=== PATIENT | male | born 1935 | race Caucasian/White ===

== ENCOUNTER → 2018-09-07 07:04 | Day surgery (SDC) | payer MEDICARE ==
--- NOTE | 2018-08-26 10:11 | HP ---
CC: Dr. Rodger Maza, [facility] in [place]; Dr. Naik* HISTORY AND PHYSICAL: DATE OF ADMISSION: 09/07/18 ADMITTING DIAGNOSES: 1. Severe phimosis. 2. Meatal stricture. 3. Urinary retention. PLANNED PROCEDURE: Dorsal slit, possible circumcision, possible meatotomy. SURGEON: Dr. Naik. 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 He had undergone urethral dilation and placement of a Juares catheter and is now being brought in for more definitive management of the situation. PAST MEDICAL HISTORY: 1. Significant for chronic kidney disease stage 2. 2. Type 2 diabetes mellitus. 3. Hyperlipidemia. 4. Hypothyroidism. 5. History of coronary artery disease. 6. Hypertension. 7. History of left renal mass (on surveillance through [facility] [[email or web address] Urology). MEDICATIONS ON ADMISSION: 1. Clonidine 0.2 mg 3 times a day. 2. Fenofibrate 200 mg daily. 3. Amlodipine 5 mg daily. 4. Labetalol 200 mg 3 times a day. 5. Flomax 0.4 mg daily. 6. Levemir 10 units b.i.d. 7. Losartan potassium 60 mg twice daily. 8. Levothyroxine 112 mcg daily. 9. Montelukast 10 mg daily. 10. Spironolactone 25 mg daily. Also, Dr. Maza has recently added Veltassa 1 tablet daily. ALLERGIES AND INTOLERANCES: ASPIRIN, HYDRALAZINE, LIPITOR. FAMILY HISTORY: Negative for bladder or prostate cancer. SOCIAL HISTORY: He is a former smoke, who smoked for 20 years and quit about 8 to 10 years ago. REVIEW OF SYSTEMS: He denies any chest pain or shortness of breath. PHYSICAL EXAMINATION GENERAL: Reveals a pleasant elderly gentleman. VITAL SIGNS: Blood pressure is 150/92, pulse 110 per minute and regular, temperature 97.7, oxygen saturation 94% on room air. LUNGS: Clear bilaterally. CARDIOVASCULAR: Regular rate and rhythm. S1, S2. ABDOMEN: Soft without masses. Phallus is uncircumcised with severe phimosis and a Juares catheter in place. PLAN: Plan is dorsal slit, possible circumcision, possible meatotomy. [id number]/[facility] #: [id number] [facility]OSPITALBailee
[~2018-09-07 07:04] MED LIST: Bacitracin OINTMENT* 0.5% 0.5 oz TUBE ONE; Buffered Lidocaine 1% SYRIN* 1 ML/SYRINGE INTRADERM ONE; Etomidate* 2 MG/ML 10 ML VIAL ONE; Famotidine IV* 10 MG/ML 2 ML (20 mg) IV ONE; Famotidine IV* 10 MG/ML 2 ML (20 mg) ONE; Lactated Ringers 1000 ML Bag* 1,000 ML IV SCH; Lidocaine 1% INJ* 10 MG/ML 30 ML SDV ONE; Lidocaine 2% JELLY* 6 ML JELLY TOPICAL ONE; Metoclopramide IV* 5 MG/ML 2 ML VIAL IV SLOW PU ONE; Metoclopramide IV* 5 MG/ML 2 ML VIAL ONE; Naloxone* 0.4 MG/ML 1 ML VIAL IV PRN; Ondansetron INJ* 2 MG/ML VIAL ONE; cefTRIAXone(*) 2 GM ADDV.VIAL IVPB ONE; fentaNYL* 50 MCG/ML 2 ML VIAL (100 MCG VIAL) IV PRN
[2018-09-07 12:23] VITALS: BP 179/95
--- NOTE | 2018-09-07 16:15 | OP ---
CC: Dr. Aldana * DATE OF OPERATION: 09/07/18 - [facility] DATE OF : 37 SURGEON: Alexey Naik MD ANESTHESIOLOGIST: Dr. Fuentes. ANESTHESIA: General. PRE-OP DIAGNOSES: 1. Severe phimosis. 2. Extensive adhesions between foreskin and glans penis. 3. Meatal stenosis. POST-OP DIAGNOSES: 1. Severe phimosis. 2. Extensive adhesions between foreskin and glans penis. 3. Meatal stenosis. OPERATIVE PROCEDURE: 1. Dorsal slit circumcision. 2. Division of adhesions between foreskin and glans. 3. Meatotomy (ventral meatotomy). COMPLICATIONS: None. ESTIMATED BLOOD LOSS: Minimal. OPERATIVE FINDINGS: As described above, extensive adhesions between foreskin and glans all around, severe phimosis and severe meatal stenosis. POSTOPERATIVE CONDITION: Stable. INDICATIONS: Kevin Hill is an 82-year-old gentleman who had been evaluated for urinary retention and had been noted to have the above mentioned findings. He also had prostate enlargement and I am not sure how much of the part that is playing in his urinary retention. The plan is to fix the problem related to the foreskin and the meatal stenosis and then give him a voiding trial and see if he is able to empty his bladder. If not, he would then require transurethral resection of the prostate in the future. DESCRIPTION OF PROCEDURE: After induction of general anesthesia, the patient was placed on the operating table in supine position. External genitalia were prepped and draped in the usual sterile fashion. The previously placed Juares catheter had been removed. Attention was directed first to the foreskin, which was severely adherent to the glans penis in addition to the phimosis. The adhesions between the foreskin and the glans were sharply divided all around and in some of these places, this resulted in some abrasion of the glans, which was controlled using interrupted [id number] 4-0 Vicryl sutures. Once the adhesions had been divided, I was able to retract the foreskin and an extensive dorsal slit was performed to expose the meatus. An additional ventral slit was also performed and the divided edges were oversewn using interrupted sutures of 3-0 chromic for hemostasis. Some of the redundant foreskin was approximated to the glans in areas where this was appropriate, both for cosmetic purposes and for hemostasis. Once this was done, attention was directed to the meatus. A ventral meatotomy was performed and mucosa was approximated to the divided edges using interrupted sutures of 4-0 chromic. A 24-Nauruan Juares catheter was easily introduced after the meatotomy and connected to a drainage bag. My plan is to give him a voiding trial in about 4 to 5 weeks and if he is not able to urinate, then the next step would be to bring him back for a transurethral resection of prostate. The patient tolerated the procedure satisfactorily and was transferred back to the recovery area in stable condition. [id number]/[facility] #: [id number] MTDBailee
== END | disposition home or self-care (01) ==
LOC: OR 07:04
PROVIDERS: ATTEND Urology
DX: N47.1 Phimosis (principal); N35.811 Other urethral stricture, male, meatal; N18.2 Chronic kidney disease, stage 2 (mild); I12.9 Hypertensive chronic kidney disease with stage 1 through stage 4 chronic kidney disease, or unspecified chronic kidney disease; E11.22 Type 2 diabetes mellitus with diabetic chronic kidney disease; E03.9 Hypothyroidism, unspecified; E78.5 Hyperlipidemia, unspecified
CPT/HCPCS: A9270-GY; J0696; J2405; J2765

== ENCOUNTER 2018-10-11 02:01 | Inpatient (IN) | payer MEDICARE ==
[2018-10-11] MEDS ORDERED: Furosemide IV* 10 MG/ML VIAL (40 MG) IV SLOW PU ONE (02:10)
[2018-10-11] MEDS ORDERED: Nitro 2% OINT* (Nitroglycerin) 1 INCH/PAK PAK TOPICAL ONE (02:11)
[2018-10-11] MEDS ORDERED: Albuterol/Ipratropium NEB.SOL* Albuterol 2.5 MG/Ipratropium 0.5 MG 3 ML INH ONE (02:51)
[2018-10-11] MEDS ORDERED: Albuterol 2.5 MG/3 ML NEB.SOL* (0.083%) INH ONE (02:53)
--- NOTE | 2018-10-11 03:01 | ED ---
Shortness of Breath - HPI Summary HPI Summary: This patient is a 83 year old M [facility] accompanied by his daughter- in-law with a chief complaint of increased SOB since 2 hours ago. Patient states that he was SOB all day. He takes medication to urinate and has a catheter in place. The patient rates the pain 0/10 in severity. Symptoms aggravated by nothing. Symptoms alleviated by nothing. - History of Current Complaint Chief Complaint: EDRespiratoryDistress Time Seen by Provider: 10/11/18 02:03 Hx Obtained From: Patient, Family/Swimming Pool Maintenance - [id number] Onset/Duration: Sudden Onset, Lasting Days - 1 Timing: Constant Aggravating Factors: Nothing Alleviating Factors: Nothing - Allergy/Home Medications Allergies/Adverse Reactions: Allergies Allergy/AdvReac Type Severity Reaction Status Date / Time aspirin Allergy Headache Verified 09/07/18 08:32 atorvastatin [From Lipitor] Allergy Unknown Verified 09/07/18 08:33 Reaction Details hydrolase Allergy Unknown Uncoded 09/07/18 08:33 Reaction Details PMH/Surg Hx/FS Hx/Imm Hx Previously Healthy: No Endocrine/Hematology History: Reports: Hx Diabetes - FINGER STICK BID, Hx Thyroid Disease Cardiovascular History: Reports: Hx Aneurysm, Hx Coronary Artery Disease, Hx Hypercholesterolemia, Hx Hypertension - CONTROLLED WITH DAILY MEDS, Other Cardiovascular Problems/Disorders - BYPASS GUTHERIE , AAA REPAIR Denies: Hx Pacemaker/ICD Respiratory History: Reports: Hx Pulmonary Embolism, Other Respiratory Problems/ Disorders - 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 SALIVARY GLAND REMOVED [id number];. CORONARY BY-PASS SURGERY [id number];. BILATERAL EYE CATARACT [facility];. AAA 2014 AORTIC STENT PLACEMENT [place] 10/13/13 ( CLEARED BY REPORT AND DR. HWANG. URBINA TO SCAN. SEE OTHER FAC REPORT); Hx Anesthesia Reactions: No Infectious Disease History: No Infectious Disease History: Denies: Traveled Outside the [place] in Last 30 Days - Family History Known Family History: Positive: Cardiac Disease, Diabetes - Social History Alcohol Use: None Hx Substance Use: No Substance Use Type: Reports: None Smoking Status (MU): Former Smoker Have You Smoked in the Last Year: No Review of Systems Negative: Fever Positive: Shortness Of Breath All Other Systems Reviewed And Are Negative: Yes Physical Exam - Summary Physical Exam Summary: VITAL SIGNS: Reviewed. GENERAL: Patient is a well-developed and nourished (MALE OR FEMALE) who is lying comfortable in the stretcher. Patient is not in any acute respiratory distress. HEAD AND FACE: No signs of trauma. No ecchymosis, hematomas or skull depressions. No sinus tenderness. EYES: PERRLA, EOMI x 2, No injected conjunctiva, no nystagmus. EARS: Hearing grossly intact. Ear canals and tympanic membranes are within normal limits. MOUTH: Oropharynx within normal limits. NECK: Bilateral JVD 6 cm, supple, trachea is midline, no adenopathy, no carotid bruit, no c-spine tenderness, neck with full ROM CHEST: Symmetric, no tenderness at palpation LUNGS: mild to moderate respiratory distress, bilateral rales diffuse CVS: Tachycardia, S1 and S2 present, no murmurs or gallops appreciated. ABDOMEN: distended, soft, non-tender. No rebound no guarding, and no masses palpated. Bowel sounds are normal. EXTREMITIES: Bilateral +2-3 pitting edema, FROM in all major joints, no cyanosis or clubbing. NEURO: Alert and oriented x 3. No acute neurological deficits. Speech is normal and follows commands. SKIN: Mildly diaphoretic and warm Triage Information Reviewed: Yes Vital Signs On Initial Exam: Initial Vitals Temp Pulse Resp BP Pulse Ox 97.3 F 93 28 175/113 100 10/11/18 02:01 10/11/18 02:01 10/11/18 02:01 10/11/18 02:01 10/11/18 02:01 Vital Signs Reviewed: Yes Diagnostics - Vital Signs Vital Signs Temp Pulse Resp BP Pulse Ox 10/11/18 02:30 91 25 161/93 100 10/11/18 02:21 77 28 100 10/11/18 02:07 92 19 100 10/11/18 02:03 93 19 175/113 100 10/11/18 02:01 97.3 F 93 28 175/113 100 - Laboratory Lab Results: Lab Results 10/11/18 Range/Units 02:27 ABG pH 7.29 L (7.35-7.45) ABG pCO2 51 H (35-45) mmHg ABG pO2 127 H (80-100) mmHg ABG HCO3 22.8 (19-31) mmol/L ABG O2 Saturation 98.5 H (94.0-98.0) % ABG Base Excess -2.7 L (-2.0-2.0) mmol/L Result Diagrams: 10/11/18 02:40 10/11/18 02:40 Lab Statement: Any lab studies that have been ordered have been reviewed, and results considered in the medical decision making process. - Radiology CXR Radiology Interpretation Completed By: ED Physician Summary of Radiographic Findings: cardiomegaly and bilaterlly interstitial infiltrate, consistent with CHF. - EKG 0230 Cardiac Rate: NL - 91 BPM EKG Rhythm: Sinus Rhythm Summary of EKG Findings: Sinus rhythm, 91 BPM, LBBB Course/Dx - Course Course Of Treatment: This patient is a 83 year old M presenting to [facility] accompanied by his [id number] with a chief complaint of increased SOB since 2 hours ago. Patient states that he was SOB all day. He takes medication to urinate and has a catheter in place. The patient rates the pain 0/10 in severity. Symptoms aggravated by nothing. Symptoms alleviated by nothing. Physical exam findings show mild to moderate respiratory distress, pt is mildly diaphoretic, bilateral JVD 6 cm, lung bilateral rales diffuse, tachycardiac, bilateral +2-3 pitting edema lower extremity, ABD distended. Lab results show RBC 3.45, Hgb 9.9, Hct 30, RDW 16, absolute neuts 7.8, absolute lymphs 0.5, INR 1.33, APTT 52.5, ABG pH 7.29, ABG pCO2 51, ABG pO2 127, ABG O2 saturation 98.5, ABG base excess -2.7, BUN 36, creatinine 2.96, glucose 171, calcium 8.4, BNP 619 , total protein 6.0, albumin 3.1, TSH 6.58. EKG at 0230 shows sinus rhythm, 91 BPM, LBBB. CXR shows cardiomegaly and bilaterlly interstitial infiltrate, consistent with CHF. During the ED course, the patient was given Ventolin, Duoneb, Lasix IV, and NTG. At 0346, Dr. Simpson discusses patient's case with Dr. Becker, hospitalist, who agrees to admit patient. Patient is agreeable. Final diagnosis is CHF. - Diagnoses Provider Diagnoses: CHF (congestive heart failure) - Physician Notifications Discussed Care of Patient With: Christina Becker Time Discussed With Above Provider: 03:46 Instructed by Provider To: Other - Dr. Simpson discusses patient's case with Dr. Becker, hospitalist, who agrees to admit patient. Discharge - Sign-Out/Discharge Documenting (check all that apply): Patient Departure - admit Patient Received Moderate/Deep Sedation with Procedure: No - Discharge Plan Condition: Good Disposition: ADMITTED TO [facility] - Attestation Statements Document Initiated by Scribe: Yes Documenting Scribe: Rohan Gutierrez Provider For Whom Scribe is Documenting (Include Credential): Dr. Maegan Simpson MD Scribe Attestation: Rohan Phillips, scribed for Dr. Maegan Simpson MD on 10/11/18 at 0525. Status of Scribe Document: Ready
[2018-10-11 03:06] LABS: ABS Eosinophils 0.3 10^3/ul (0-0.6); ABS Lymphocytes 0.5 10^3/ul (1.0-4.8); ABS Monocytes 0.5 10^3/ul (0-0.8); ABS Neutrophils 7.8 10^3/ul (1.5-7.7); Eosinophil % 3.4 %; Hematocrit 30 % (42-52); Hemoglobin 9.9 g/dL (14.0-18.0); Lymphocyte % 5.5 %; Mean Corpuscular HGB Conc 33 g/dL (31-36); Mean Corpuscular Hemoglobin 29 pg (27-31); Mean Corpuscular Volume 87 fL (80-94); Mean Platelet Volume 7.4 fL (7.4-10.4); Platelet Count 261 10^3/uL (150-450); Red Blood Count 3.45 10^6 /uL (4.18-5.48); Red Cell Distribution Width 16 % (10-15); White Blood Count 9.2 10^3/uL (3.5-10.8)
[2018-10-11 03:11] LABS: Activated Partial Thrombo Time 52.5 seconds (26.0-38.0); INR 1.33 (0.82-1.09)
[2018-10-11 03:15] LABS: Albumin 3.1 g/dL (3.2-5.2); Albumin/Globulin Ratio 1.1 (1-3); BUN/Creatinine Ratio 12.2 (8-20); Calcium 8.4 mg/dL (8.6-10.3); EGFR African American 24.7 (>60); EGFR Non-African American 20.4 (>60); Globulin 2.9 g/dL (2-4); Potassium 4.5 mmol/L (3.5-5.0); Total Bilirubin 0.7 mg/dL (0.2-1.0)
[2018-10-11 03:17] LABS: Troponin I 0.01 ng/mL (<0.04)
[2018-10-11 04:13] LABS: Magnesium 1.9 mg/dL (1.9-2.7)
[2018-10-11] MEDS ORDERED: Magnesium Sulfate 1 GM IV* 1 GM/100 ML BAG IV ONE (04:25)
[2018-10-11 04:28] LABS: TSH (Thyroid Stimulating Horm) 6.58 mcIU/mL (0.34-5.60)
[2018-10-11] MEDS ORDERED: Acetaminophen TAB* 325 MG PO PRN (04:41)
[2018-10-11] MEDS ORDERED: Dextrose 50% Syringe 50 ML* 25 GM/50 ML SYRINGE IV PUSH PRN (04:51)
[2018-10-11] MEDS: Levothyroxine TAB* 112 MCG TAB PO SCH (07:00)
[2018-10-11 07:08] LABS: Anion Gap 7 mmol/L (2-11); BUN/Creatinine Ratio 12.3 (8-20); Blood Urea Nitrogen 37 mg/dL (6-24); CO2 Carbon Dioxide 27 mmol/L (22-32); Calcium 8.5 mg/dL (8.6-10.3); Chloride 106 mmol/L (101-111); EGFR African American 24.2 (>60); Glucose 146 mg/dL (70-100); Magnesium 2.3 mg/dL (1.9-2.7); Potassium 4.8 mmol/L (3.5-5.0); Sodium 140 mmol/L (135-145)
[2018-10-11 07:13] LABS: % Iron Saturation 9 % (15-55); Iron 29 ug/dL (50-212); Total Iron Binding Capacity 312 mcg/dL (250-450); Transferrin 223 mg/dL (203-362)
[2018-10-11 07:25] LABS: Ferritin 134.1 ng/mL (24-336)
[2018-10-11] MEDS: Timolol 0.5% OPTH.SOL* BTL RIGHT EYE SCH ×2 (08:32→21:42)
[2018-10-11] MEDS: Losartan TAB* 25 MG PO SCH ×2 (08:32→21:40)
[2018-10-11] MEDS: Spironolactone TAB* 25 MG PO SCH (08:32)
[2018-10-11] MEDS: cloNIDine TAB* 0.1 MG PO SCH ×3 (08:32→21:41)
[2018-10-11] MEDS: Labetalol TAB* 300 MG PO SCH ×3 (08:32→21:41)
[2018-10-11] MEDS: Brinzolamide 1% OPHTH SOL(NF) BTL RIGHT EYE SCH ×2 (08:33→21:25)
[2018-10-11] MEDS: Insulin GLARGINE(*) 1 UNITS UNIT SUBCUT SCH ×2 (08:33→21:45)
[2018-10-11] MEDS: Insulin LISPRO* 1 UNITS UNIT SUBCUT SCH ×3 (08:33→17:56)
--- NOTE | 2018-10-11 10:11 | HP ---
CC: Adrian Aldana MD; Dr. Hubbard * HISTORY AND PHYSICAL: DATE OF ADMISSION: PRIMARY CARE PHYSICIAN: Adrian Aldana MD FIELD TECH: Dr. Hubbard. HEALTHCARE PROXY: His [id number], Lakeisha. CHIEF COMPLAINT: Acute onset of shortness of breath. HISTORY OF PRESENT ILLNESS: Mr. Hill is an 83-year-old man with history of coronary artery disease, status post CABG; heart failure, reduced ejection fraction, EF 45%; DM 2, on insulin; chronic kidney disease; hypertension; abdominal aortic aneurysm, status post repair; and hypothyroidism who presented with acute onset of shortness of breath. At baseline, he has shortness of breath which limits his exercise tolerance to approximately 1 minute; however, over the last 1 to 2 days, his exercise tolerance has been limited to few steps. His shortness of breath is worse when he is lying flat and he has been experiencing paroxysmal nocturnal dyspnea the last couple nights. He generally sleeps on 1 pillow and has not changed that recently. He has noticed worsening lower extremity edema which is a chronic problem, but now the edema is up to his thighs. He does deny new fevers, chills, chest pain, abdominal pain, nausea , vomiting, constipation, diarrhea, or dysuria. He does report a chronic cough productive of clear phlegm, which is a chronic problem that he has experienced last 30 years and has not recently worsened. A complete 10-point review of systems was performed and pertinent positives and negatives are listed in the HPI. In the emergency room, the patient was found to be in acute respiratory distress and significantly volume overloaded on exam. He was given nebulizers, Lasix 40 mg IV, and nitro paste, and placed on BiPAP machine. The patient has put out significant clear yellow urine and reports feeling significantly better by time of my exam and was able to come off BiPAP and be placed on 3 L nasal cannula oxygen with saturation 100%. He will be admitted to the medical floors for further IV diuresis and monitoring of respiratory status on supplemental oxygen. PAST MEDICAL HISTORY: 1. Coronary artery disease, status post CABG in 2006 with cardiac cath done in 2010 with severe moapa multivessel disease and LAD totally occluded at the ostium with 90% severe left circ disease. 2. Heart failure, reduced ejection fraction, EF 40% to 45%. 3. Hypertension. Of note, the patient was on hydrochlorothiazide in the recent past which seemed to have been discontinue due to hypokalemia. This year , he was started on spironolactone which has been complicated by elevated potassium, and now, he has been placed on Lokelma. It is unclear why he is not on furosemide for his heart failure with chronic lower extremity edema and history of elevated potassium on spironolactone. 4. Chronic kidney disease. 5. Diabetes mellitus type 2, on insulin. 6. Abdominal aortic aneurysm, status post repair. 7. Severe phimosis complicated by urinary retention with hospitalization on 03/16 for a dorsal slit with possible circumcision, placed on Juares catheter. 8. BPH. 9. Hypothyroidism. 10. Allergic rhinitis. HOME MEDICATIONS: 1. Amlodipine 5 mg daily. 2. Clonidine 0.2 mg 3 times a day. 3. Labetalol 300 mg 3 times a day. 4. Losartan 50 mg twice a day. 5. Spironolactone 25 mg daily. 6. Lokelma 10 g daily. 7. Tamsulosin 0.4 mg daily. 8. Fenofibrate 200 mg daily. 9. Insulin detemir 10 units twice a day. 10. Levothyroxine 112 mcg daily. 11. Montelukast 10 mg daily. 12. Vitamin D3 2000 International Units daily. 13. Azopt, latanoprost, and Timoptic eye drops. ALLERGIES: ASPIRIN caused dizziness and stomach upset, HYDRALAZINE caused drug - induced lupus, and ATORVASTATIN caused muscle aches. FAMILY HISTORY: Multiple uncles and his son suffer from alcoholism. He does not know the health history on his father's side as he does not know his father. 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 His son, Marcial, lives with him and is struggling with alcohol use disorder. The patient smoked 1 pack per day from age 16 to age 36. He denies ever using alcohol or other drugs. His healthcare proxy is his [id number] , Lakeisha. PHYSICAL EXAMINATION GENERAL: He is a well-appearing elderly man, in no acute distress, who is alert , interactive, and very humorous. VITAL SIGNS: Afebrile, heart rate 70, blood pressure 165/98, respiratory rate is 20, oxygen saturation 100% on 3 L. HEENT: With moist mucous membranes. Pupils equal, round, and reactive to light. NECK: Without JVD. Supple. LUNGS: With bibasilar crackles. HEART: With regular rate and rhythm. No murmurs, gallops, or rubs, although sounds are distant. ABDOMEN: Soft, nontender, mildly distended. The patient reports at baseline no rebound or guarding. No hepatic pulsation. EXTREMITIES: With bilateral edema up to mid thighs, 3+ around ankles, 1+ on thighs, warm and well perfused. No cyanosis, clubbing. NEUROLOGIC: Alert and oriented x3 without focal deficits. Speech is fluent. SKIN: Warm and dry. DIAGNOSTIC STUDIES/LAB DATA: Hemoglobin 9.9 with MCV 87, unknown baseline. INR 1.33. BUN/creatinine 36/2.96 which appears to be the patient's baseline renal function. BNP 619. TSH 6.58. ABG initially with pH 7.29 and pCO2 of 51, which improved to normal levels after BiPAP. Chest x-ray with cardiomegaly and bilateral interstitial infiltrates without focal consolidation or large effusions. EKG with normal sinus rhythm, with rate 91, with no ischemic changes. ASSESSMENT AND PLAN: is an 83-year-old man with heart failure, reduced ejection fraction, 40% to 45%; coronary artery disease, status post coronary artery bypass grafting; hypertension; chronic kidney disease; diabetes , on insulin; BPH; urinary retention with Juares catheter who is presenting with acute onset of shortness of breath associated with paroxysmal nocturnal dyspnea and worsening lower extremity edema. 1. Chronic heart failure, reduced ejection fraction presenting with acute exacerbation. The patient improved rapidly with furosemide 40 mg IV, BiPAP, and nitro paste. We will recheck morning electrolytes, replete as needed and consider second dose of furosemide 40 mg IV. He will be admitted to the telemetry unit and have daily weight with Is and Os recorded. We will wean oxygen as tolerated. Continue the patient's home losartan 50 mg twice a day. It is preferable that he have beta-blockade with a medication like carvedilol and we will consider switching his labetalol to carvedilol for his heart failure with reduced ejection fraction, which would also help with continued blood pressure control. Likely, this patient would benefit from addition of furosemide to his home medication regimen. He is currently only taking spironolactone, which I think may be for hypertension. Will order transthoracic echocardiogram for the morning. 2. Hypertension. Continue the patient's home amlodipine 5 mg daily, clonidine 0.2 mg 3 times a day, labetalol 300 mg 3 times a day, losartan 50 mg twice a day , spironolactone 25 mg daily. We will consider switching labetalol to carvedilol given improved outcomes in heart failure, reduced ejection fraction. Up-titration of carvedilol may allow the patient to come off his 3-time a day clonidine dosing as well, which would be favorable due to reduction of pharmacy. 3. Coronary artery disease, status post coronary artery bypass grafting. The patient has allergy to ASPIRIN and has been unable to tolerate statins in the past. We will defer further management to outpatient cardiology. 4. Diabetes. Continue the patient's home insulin detemir 10 units twice a day and we will add insulin sliding scale with 3-times a day fingersticks. 5. Hypothyroidism. TSH is 6.58 which is goal for this octogenarian. We will continue levothyroxine 112 mcg daily. 6. Allergic rhinitis. We will continue home montelukast 10 mg daily. 7. BPH. Continue tamsulosin 0.4 mg daily. The patient does have chronic Juares after a recent admission for severe phimosis. We will continue Juares. 8. Anemia with low normal MCV, with unknown baseline. We will order iron studies for the morning. 9. DVT prophylaxis. Initiate Lovenox at reduced dose given impaired kidney function. 10. FEN. We will initiate carb controlled diet. TIME SPENT: Approximately 60 minutes was spent on admission of this patient, more than of half of which was spent at the bedside for interview and exam. [id number]/[facility] #: [id number] [facility]ITAL[facility]ilee
[2018-10-11] MEDS ORDERED: Furosemide IV* 10 MG/ML VIAL (40 MG) IV ONE (12:00)
--- NOTE | 2018-10-11 12:52 | ECHO ---
*[facility]* [place] [address] Fax #: [phone] Transthoracic Echocardiogram Patient: Kevin Gregory : 1935 Study Date: 10/11/2018 Age: 83 Gender: M HR: 81 bpm Height: 70 in /177.8 cm BSA: 2.05 m^2 Weight: 184.6 lb /83.9 kg BMI: 26.5 kg/m^2 *Rehabilitation Assistant: * Dayana Rogers [facility] *Referring Physician: * Christina Becker *Reading Physician: * Kiara Barnes MD Indications: Congestive Heart Failure. History: Coronary artery disease. Risk factors: Hypertension. Diabetes mellitus. Dyslipidemia. Labs, prior tests, procedures, and surgery: Coronary artery bypass grafting. Conclusions Summary: 1. Left ventricle: The cavity size is normal. Wall thickness is mildly to moderately increased. Systolic function is normal. The estimated ejection fraction is 55-60%. Evidence of increased LVEDP based on E/e'. 2. Right ventricle: Systolic function is normal. 3. Mitral valve: There is moderate regurgitation. 4. Aortic valve: There is mild regurgitation. 5. Tricuspid valve: There is mild regurgitation. 6. Normal pulmonary artery pressure. 7. Compared with prior echocardiogram of 05/12/18, ejection fraction has improved from 40-45%, no longer see focal wall motion abnormality in the inf/posterior wall. AI is stable, mitral regurgitation has increased from mild, tricuspid regurgitation is stable. Study data: Transthoracic echocardiogram. Procedure: Transthoracic echocardiography was performed. Image quality was good. Complete 2D, spectral Doppler, and color flow Doppler. Patient status: Inpatient. Patient room number: 447-2. Rhythm: Normal sinus rhythm. Findings Left ventricle: The cavity size is normal. Wall thickness is mildly to moderately increased. Systolic function is normal. The estimated ejection fraction is 55-60%. Wall motion is normal; there are no regional wall motion abnormalities. Left ventricular diastolic function parameters are indeterminate. Evidence of increased LVEDP based on E/e'. Right ventricle: Well visualized. The cavity size is normal. Wall thickness is normal. Systolic function is normal. Systolic pressure is within the normal range. Ventricular septum: Well visualized. Left atrium: Well visualized. The atrium is normal in size. Right atrium: Well visualized. The atrium is normal in size. Atrial septum: Well visualized. Mitral valve: Well visualized. The leaflets are mildly thickened. No echocardiographic evidence for prolapse. There is no evidence of stenosis. There is moderate regurgitation. Aortic valve: Well visualized. The valve is trileaflet. The leaflets are normal thickness. There is no evidence of stenosis. There is mild regurgitation. Tricuspid valve: Well visualized. The leaflets are normal thickness. There is no evidence of stenosis. There is mild regurgitation. Pulmonic valve: Well visualized. The leaflets are normal thickness. There is no evidence of stenosis. There is no significant regurgitation. Aorta: The aorta is well visualized and normal size. Aortic arch: The aortic arch is appears normal. Pericardium: There is no pericardial effusion. No evidence of pleural fluid accumulation. Pulmonary arteries: Well visualized. The main pulmonary artery is normal-sized. Systemic veins: Not well visualized. Pulmonary veins: Visualization of the pulmonary venous anatomy is incomplete, but a significant abnormality is unlikely. Measurements Left ventricle Value Ref Aortic valve continued Value Ref MARY BETH, LAX 5.5 cm 4.2 - Mean grad, S 5.5 mm Hg ----- 5.8 Peak grad, S 9.2 mm Hg ----- ESD, LAX 3.8 cm 2.5 - LVOT/AV, VTI ratio 0.86 ----- 4.0 AR peak v 3.85 m/sec ----- FS, LAX 30 % 25 - 43 AR decel time 1099 ms ----- PW, ED, LAX (H) 1.4 cm 0.6 - AR PHT 319 ms ----- 1.0 AR peak grad 59 mm Hg ----- FS 30 % 25 - 43 PW, ED (H) 1.4 cm 0.6 - Mitral valve Value Ref 1.0 Peak E 1.24 m/sec ----- PW/ID, ED 0.26 -------- Peak A 0.89 m/sec ----- E', lat sera, TDI (L) 9.2 cm/sec >=10.0 Decel time 155 ms ----- E/e', lat sera, 14 -------- Peak grad, D 6.1 mm Hg --- -- TDI Peak E/A ratio 1.4 ----- MR peak v 6.04 m/sec ----- LVOT Value Ref Peak mehdi, S 1.22 m/sec -------- Pulmonic valve Value Ref VTI, S 28.5 cm -------- Peak v, S 0.75 m/sec ----- Peak grad, S 6 mm Hg -------- Peak grad, S 2.3 mm Hg ----- Mean grad, S 3 mm Hg -------- Tricuspid valve Value Ref Ventricular septum Value Ref TR peak v 2.53 m/sec <=2.8 IVS, ED (H) 1.2 cm 0.6 - Peak RV-RA grad, S 26 mm Hg ----- 1.0 Aortic root Value Ref Right ventricle Value Ref Root diam 2.0 cm <4.2 MARY BETH, LAX 2.8 cm -------- MARY BETH major ax, A4C (L) 3.3 cm 5.9 - Ascending aorta Value Ref 8.3 AAo AP diam, S 3.3 cm ----- AAo AP diam/bsa, S 1.6 cm/m^2 ----- Left atrium Value Ref LA ID 4.3 cm -------- Aortic arch Value Ref SI dim ES, LAX 4.3 cm -------- Arch diam 2.5 cm ----- ML dim, A4C 4.9 cm -------- SI dim, A4C 5.7 cm -------- Decending aorta Value Ref Vol, ES, 2-p 99 ml -------- Nehemias peak mehdi 0.58 m/sec ----- Vol/bsa, ES, 2-p (H) 48 ml/m^2 16 - 34 Inferior vena cava Value Ref Right atrium Value Ref Diam 2.5 cm ----- SI dim, ES (H) 6.0 cm 3.4 - 5.3 ML dim, ES, A4C (H) 4.8 cm 2.6 - 4.4 SI dim, ES, A4C (H) 6.0 cm 3.4 - 5.3 Aortic valve Value Ref Peak v, S 1.52 m/sec -------- VTI, S 33.2 cm -------- Legend: (L) and (H) kiara values outside specified reference range. Prepared and electronically signed by Kiara Barnes MD 10/11/2018 12:52
[2018-10-11] MEDS: Cholecalciferol TAB* 1000 UNITS PO SCH (12:58)
[2018-10-11] MEDS: Montelukast Sodium TAB* 10 MG PO SCH (12:58)
[2018-10-11] MEDS: Latanoprost 0.005%* 2.5 ml BTL BOTH EYES SCH (18:15)
--- NOTE | 2018-10-11 18:21 | PN ---
Progress Note - Progress Note Date of Service: 10/11/18 Note: Pt seen, examined and discussed management with Dr. Coe. Agree with assessment and plan as outlined in her note unless indicated here. S: Breathing much improved since admission. Abnormal Lab Results 10/11/18 10/11/18 10/11/18 02:27 02:40 02:40 WBC 9.2 RBC 3.45 L Hgb 9.9 L Hct 30 L MCV 87 MCH 29 MCHC 33 RDW 16 H Plt Count 261 MPV 7.4 Neut % (Auto) 85.0 Lymph % (Auto) 5.5 Valley % (Auto) 5.8 Eos % (Auto) 3.4 Baso % (Auto) 0.3 Absolute Neuts (auto) 7.8 H Absolute Lymphs (auto) 0.5 L Absolute Monos (auto) 0.5 Absolute Eos (auto) 0.3 Absolute Basos (auto) 0.0 Absolute Nucleated RBC 0.0 Nucleated RBC % 0.0 INR (Anticoag Therapy) 1.33 H APTT 52.5 H Patient Temperature ABG pH 7.29 L ABG pH (Temp Correct) ABG pCO2 51 H ABG pCO2 (Temp Corrct ABG pO2 127 H ABG pO2 (Temp Correct ABG HCO3 22.8 ABG O2 Saturation 98.5 H ABG Base Excess -2.7 L Respiration Rate O2 Delivery Device Ventilator Type Vent Mode FiO2 Inspiratory Time PEEP Pressure Support Pressure Control EPAP IPAP BiPAP Sodium Potassium Chloride Carbon Dioxide Anion Gap BUN Creatinine Est GFR ( Amer) Est GFR (Non-Af Amer) BUN/Creatinine Ratio Glucose POC Glucose (mg/dL) Calcium Magnesium Iron TIBC % Saturation Unsat Iron Binding Transferrin Ferritin Total Bilirubin AST ALT Alkaline Phosphatase Troponin I B-Natriuretic Peptide Total Protein Albumin Globulin Albumin/Globulin Ratio TSH 10/11/18 10/11/18 10/11/18 02:40 02:40 04:06 WBC RBC Hgb Hct MCV MCH MCHC RDW Plt Count MPV Neut % (Auto) Lymph % (Auto) Valley % (Auto) Eos % (Auto) Baso % (Auto) Absolute Neuts (auto) Absolute Lymphs (auto) Absolute Monos (auto) Absolute Eos (auto) Absolute Basos (auto) Absolute Nucleated RBC Nucleated RBC % INR (Anticoag Therapy) APTT Patient Temperature Not Reportable ABG pH 7.37 ABG pH (Temp Correct) Not Reportable ABG pCO2 40 ABG pCO2 (Temp Corrct Not Reportable ABG pO2 112 H ABG pO2 (Temp Correct Not Reportable ABG HCO3 23.4 ABG O2 Saturation 98.8 H ABG Base Excess -2.0 Respiration Rate 14 O2 Delivery Device Bipap Ventilator Type Not Reportable Vent Mode S/t FiO2 30 Inspiratory Time Not Reportable PEEP Not Reportable Pressure Support Not Reportable Pressure Control Not Reportable EPAP 6 IPAP 12 BiPAP Not Reportable Sodium 136 Potassium 4.5 Chloride 105 Carbon Dioxide 26 Anion Gap 5 BUN 36 H Creatinine 2.96 H Est GFR ( Amer) 24.7 Est GFR (Non-Af Amer) 20.4 BUN/Creatinine Ratio 12.2 Glucose 171 H POC Glucose (mg/dL) Calcium 8.4 L Magnesium 1.9 Iron TIBC % Saturation Unsat Iron Binding Transferrin Ferritin Total Bilirubin 0.70 AST 19 ALT 12 Alkaline Phosphatase 44 Troponin I 0.01 B-Natriuretic Peptide 619 H Total Protein 6.0 L Albumin 3.1 L Globulin 2.9 Albumin/Globulin Ratio 1.1 TSH 6.58 H 10/11/18 10/11/18 10/11/18 06:01 07:42 11:51 WBC RBC Hgb Hct MCV MCH MCHC RDW Plt Count MPV Neut % (Auto) Lymph % (Auto) Valley % (Auto) Eos % (Auto) Baso % (Auto) Absolute Neuts (auto) Absolute Lymphs (auto) Absolute Monos (auto) Absolute Eos (auto) Absolute Basos (auto) Absolute Nucleated RBC Nucleated RBC % INR (Anticoag Therapy) APTT Patient Temperature ABG pH ABG pH (Temp Correct) ABG pCO2 ABG pCO2 (Temp Corrct ABG pO2 ABG pO2 (Temp Correct ABG HCO3 ABG O2 Saturation ABG Base Excess Respiration Rate O2 Delivery Device Ventilator Type Vent Mode FiO2 Inspiratory Time PEEP Pressure Support Pressure Control EPAP IPAP BiPAP Sodium 140 Potassium 4.8 Chloride 106 Carbon Dioxide 27 Anion Gap 7 BUN 37 H Creatinine 3.02 H Est GFR ( Amer) 24.2 Est GFR (Non-Af Amer) 20.0 BUN/Creatinine Ratio 12.3 Glucose 146 H POC Glucose (mg/dL) 143 H 172 H Calcium 8.5 L Magnesium 2.3 Iron 29 L TIBC 312 % Saturation 9 L Unsat Iron Binding < 297 Transferrin 223 Ferritin 134.1 Total Bilirubin AST ALT Alkaline Phosphatase Troponin I B-Natriuretic Peptide Total Protein Albumin Globulin Albumin/Globulin Ratio TSH 10/11/18 16:22 WBC RBC Hgb Hct MCV MCH MCHC RDW Plt Count MPV Neut % (Auto) Lymph % (Auto) Valley % (Auto) Eos % (Auto) Baso % (Auto) Absolute Neuts (auto) Absolute Lymphs (auto) Absolute Monos (auto) Absolute Eos (auto) Absolute Basos (auto) Absolute Nucleated RBC Nucleated RBC % INR (Anticoag Therapy) APTT Patient Temperature ABG pH ABG pH (Temp Correct) ABG pCO2 ABG pCO2 (Temp Corrct ABG pO2 ABG pO2 (Temp Correct ABG HCO3 ABG O2 Saturation ABG Base Excess Respiration Rate O2 Delivery Device Ventilator Type Vent Mode FiO2 Inspiratory Time PEEP Pressure Support Pressure Control EPAP IPAP BiPAP Sodium Potassium Chloride Carbon Dioxide Anion Gap BUN Creatinine Est GFR ( Amer) Est GFR (Non-Af Amer) BUN/Creatinine Ratio Glucose POC Glucose (mg/dL) 151 H Calcium Magnesium Iron TIBC % Saturation Unsat Iron Binding Transferrin Ferritin Total Bilirubin AST ALT Alkaline Phosphatase Troponin I B-Natriuretic Peptide Total Protein Albumin Globulin Albumin/Globulin Ratio TSH Vital Signs - 12 hr Temp Pulse Resp BP Pulse Ox 10/11/18 11:09 98.1 F 74 16 148/72 98 10/11/18 08:00 16 10/11/18 07:51 97.8 F 81 16 161/83 100 O: lying 35 deg interactive, NAD lung cta b/l rrr 2/6 DONNY RUSB soft nt/nd 2+ le edema to knees b/l AOx3 Assessment 83 M h/o CAD, sCHF, HTN,. DM pw SOB c/w CHF exacerbation Acute systolic CHF exacerbation -c/w lasix -daily weights, strict I/Os -consider volume restriction if necessary -diurese slow given CKF -c/w ARB and consider transition of labetalol to carvedilol tomorrow CKD -will hinder rate we can safely diurese IDDM -lantus -lispro sliding scale Chronic saldana -noted and in place DVT ppx -reduced dose lovenox in setting of CKD
--- NOTE | 2018-10-11 18:30 | PN ---
Subjective Date of Service: 10/11/18 Interval History: Mr. Lott complains of SOB for 1 day with no aggravating and relieving factor. H states that SOB is improving after diuretics and BiPaP. Patient also complains of PND and swelling of legs. No c/o chest pain, fever. Objective Active Medications: Acetaminophen (Tylenol Tab*) 975 mg PO Q8H PRN PRN Reason: FEVER/PAIN Amlodipine Besylate (Norvasc Tab*) 5 mg PO BEDTIME [facility] Brinzolamide (Azopt 1% Ophth Whitney(Nf)) 1 drop RIGHT EYE BID [facility] Last Admin: 10/11/18 08:33 Dose: Not Given Cholecalciferol (Vitamin D Tab*) 2,000 units PO 1200 [facility] Last Admin: 10/11/18 12:58 Dose: 2,000 units Clonidine HCl (Catapres Tab*) 0.2 mg PO TID [facility] Last Admin: 10/11/18 12:58 Dose: 0.2 mg Dextrose (D50w Syringe 50 Ml*) 12.5 gm IV PUSH .FOR FS < 60 - SS PRN PRN Reason: FS < 60 Enoxaparin Sodium (Lovenox(*)) 30 mg SUBCUT Q24H [facility] Furosemide (Lasix Iv*) 40 mg IV DAILY [facility] Insulin Glargine (Lantus(*)) 8 units SUBCUT BID [facility] Last Admin: 10/11/18 08:33 Dose: 8 units Insulin Human Lispro (Humalog*) 0 units SUBCUT AC TERE; Protocol Last Admin: 10/11/18 17:56 Dose: 2 unit Labetalol HCl (Trandate Tab*) 300 mg PO TID [facility] Last Admin: 10/11/18 13:03 Dose: 300 mg Latanoprost (Xalatan 0.005%*) 1 drop BOTH EYES QPM [facility] Last Admin: 10/11/18 18:15 Dose: 1 drop Levothyroxine Sodium (Synthroid Tab*) 112 mcg PO 0600 [facility] Last Admin: 10/11/18 07:00 Dose: 112 mcg Losartan Potassium (Cozaar Tab*) 50 mg PO BID [facility] Last Admin: 10/11/18 08:32 Dose: 50 mg Montelukast Sodium (Singulair Tab*) 10 mg PO 1200 [facility] Last Admin: 10/11/18 12:58 Dose: 10 mg Spironolactone (Aldactone Tab*) 25 mg PO QAM [facility] Last Admin: 10/11/18 08:32 Dose: 25 mg Tamsulosin HCl (Flomax Cap*) 0.4 mg PO BEDTIME [facility] Timolol Maleate (Timoptic 0.5% Opth*) 2 drop RIGHT EYE BID [facility] Last Admin: 10/11/18 08:32 Dose: 2 drop Vital Signs - 8 hr 10/11/18 11:09 Temperature 98.1 F Pulse Rate 74 Respiratory 16 Rate Blood Pressure 148/72 (mmHg) O2 Sat by Pulse 98 Oximetry Oxygen Devices in Use Now: Nasal Cannula Exam: Patient is not in acute distress. B/L lower limb selling presnt till knees. Chest: B/L rales present. Heart' Normal heart sounds with no murmur or gallop. Result Diagrams: 10/11/18 02:40 10/11/18 06:01 Additional Lab and Data: Lab Results 10/11/18 Range/Units 02:27 ABG pH 7.29 L (7.35-7.45) ABG pCO2 51 H (35-45) mmHg ABG pO2 127 H (80-100) mmHg ABG HCO3 22.8 (19-31) mmol/L ABG O2 Saturation 98.5 H (94.0-98.0) % ABG Base Excess -2.7 L (-2.0-2.0) mmol/L Assess/Plan/Problems-Billing Assessment: 83 y/o M former smoker w/o PMH of CHF with reduced EF, CAD, status post coronary artery bypass grafting, HTN, Diabetes( taking insulin), CKD presented with SOB with acute exacerbation for 2 hr associated with PND and swelling of lower extremity but no chest pain. Admitted with diagnosis of CHF with acute exacerbation improved with furosemide, Bipap and Nitroglycerin paste. Patient has normal EF according to new echo. - Patient Problems (1) CHF (congestive heart failure) Current Visit: Yes Status: Acute Code(s): I50.9 - HEART FAILURE, UNSPECIFIED SNOMED Code(s): 72586089 Comment: CHF with with preserved EF(55-60%). Chest xray showed b/l interstitial infiltrates, BNP was high and ABG showed respiratory acidosis. Improved with medication. Transthoracic echo showed improvement in his EF(55-60% ) compared to his last echo. Monitor oxygen saturation, daily weight and input and output. BMP to be monitored. Medicine reconciliation needed. (2) CAD (coronary artery disease) of artery bypass graft Current Visit: Yes Status: Acute Code(s): I25.810 - ATHEROSCLEROSIS OF CABG W/O ANGINA PECTORIS SNOMED Code(s): 939679235 Comment: CABG done in 2009. May be contributing to his heart failure due to ischemic cardiomyopathy. Allergic to aspirin and atorvastanin. (3) Hypertension Current Visit: Yes Status: Acute Code(s): I10 - ESSENTIAL (PRIMARY) HYPERTENSION SNOMED Code(s): 51288680 Comment: During presentation BP was high in 160-170/100-110. Now it is in 140 -150/70-80 mm hg. Patient is on amlopdipine, clonidine, losartan, spironolactone, labetolol(home medication). received furosemide here. (4) Diabetes Current Visit: Yes Status: Acute Code(s): E11.9 - TYPE 2 DIABETES MELLITUS WITHOUT COMPLICATIONS SNOMED Code(s): 37478850 Comment: Patient is on insulin glargine 8U BID and insulin lispro added. Recent blood glucose is 151. Monitor blood glucose. (5) BPH (benign prostatic hyperplasia) Current Visit: Yes Status: Acute Code(s): N40.0 - BENIGN PROSTATIC HYPERPLASIA WITHOUT LOWER URINRY TRACT SYMP SNOMED Code(s): 693667028 Comment: Patient is on tamsulosin 0.4 mg daily. Have saldana catheter intact after severe phimosis. Inquire about saldana and if necessary may plan to remove. (6) Renal failure Current Visit: Yes Status: Acute Comment: Patient creatinine was 2.96 on presentation and latest creatinine is 3.02. His renal function is abnormal since 2014. Monitor BMP. Status and Disposition: Patient is admitted in medicine department.
[2018-10-11] MEDS ORDERED: FENOFIBRATE MICRONIZED 200 MG PO SCH (21:00)
[2018-10-11] MEDS: amLODIPine TAB* 5 MG PO SCH (21:40)
[2018-10-11] MEDS: Tamsulosin CAP* 0.4 MG PO SCH (21:41)
[2018-10-11] MEDS: Enoxaparin(*) 30 MG/0.3 ML SYR SUBCUT SCH (21:44)
[2018-10-12] MEDS: Furosemide IV* 10 MG/ML VIAL (40 MG) IV SCH (05:13)
[2018-10-12] MEDS: Levothyroxine TAB* 112 MCG TAB PO SCH (05:13)
[2018-10-12 08:22] LABS: BUN/Creatinine Ratio 12.8 (8-20); Calcium 8.7 mg/dL (8.6-10.3); EGFR African American 23.3 (>60); EGFR Non-African American 19.2 (>60); Potassium 4.3 mmol/L (3.5-5.0)
[2018-10-12] MEDS: Insulin LISPRO* 1 UNITS UNIT SUBCUT SCH ×3 (08:27→17:14)
[2018-10-12] MEDS: Losartan TAB* 25 MG PO SCH ×2 (09:32→21:10)
[2018-10-12] MEDS: Timolol 0.5% OPTH.SOL* BTL RIGHT EYE SCH ×2 (09:32→21:40)
[2018-10-12] MEDS: cloNIDine TAB* 0.1 MG PO SCH ×3 (09:33→21:11)
[2018-10-12] MEDS: Labetalol TAB* 300 MG PO SCH ×3 (09:33→21:11)
[2018-10-12] MEDS: Spironolactone TAB* 25 MG PO SCH (09:34)
[2018-10-12] MEDS: Insulin GLARGINE(*) 1 UNITS UNIT SUBCUT SCH ×2 (09:34→21:12)
[2018-10-12] MEDS: Brinzolamide 1% OPHTH SOL(NF) BTL RIGHT EYE SCH ×2 (09:35→21:07)
[2018-10-12] MEDS: Cholecalciferol TAB* 1000 UNITS PO SCH (12:57)
[2018-10-12] MEDS: Montelukast Sodium TAB* 10 MG PO SCH (12:57)
--- NOTE | 2018-10-12 16:57 | PN ---
<AtifLor correa - Last Filed: 10/12/18 16:51> Subjective Date of Service: 10/12/18 Interval History: Patient doesnot have any fresh complaint.He said he walked around without any discomfort or sob. His extremity swelling is reducing. Objective Active Medications: Acetaminophen (Tylenol Tab*) 975 mg PO Q8H PRN PRN Reason: FEVER/PAIN Amlodipine Besylate (Norvasc Tab*) 5 mg PO BEDTIME [facility] Last Admin: 10/11/18 21:40 Dose: 5 mg Brinzolamide (Azopt 1% Ophth Whitney(Nf)) 1 drop RIGHT EYE BID [facility] Last Admin: 10/12/18 09:35 Dose: Not Given Cholecalciferol (Vitamin D Tab*) 2,000 units PO 1200 [facility] Last Admin: 10/12/18 12:57 Dose: 2,000 units Clonidine HCl (Catapres Tab*) 0.2 mg PO TID [facility] Last Admin: 10/12/18 12:58 Dose: 0.2 mg Dextrose (D50w Syringe 50 Ml*) 12.5 gm IV PUSH .FOR FS < 60 - SS PRN PRN Reason: FS < 60 Enoxaparin Sodium (Lovenox(*)) 30 mg SUBCUT Q24H [facility] Last Admin: 10/11/18 21:44 Dose: 30 mg Furosemide (Lasix Iv*) 40 mg IV DAILY [facility] Last Admin: 10/12/18 05:13 Dose: 40 mg Insulin Glargine (Lantus(*)) 8 units SUBCUT BID [facility] Last Admin: 10/12/18 09:34 Dose: 8 units Insulin Human Lispro (Humalog*) 0 units SUBCUT AC [facility]; Protocol Last Admin: 10/12/18 12:58 Dose: 2 unit Labetalol HCl (Trandate Tab*) 300 mg PO TID [facility] Last Admin: 10/12/18 12:57 Dose: 300 mg Latanoprost (Xalatan 0.005%*) 1 drop BOTH EYES QPM [facility] Last Admin: 10/11/18 18:15 Dose: 1 drop Levothyroxine Sodium (Synthroid Tab*) 112 mcg PO 0600 [facility] Last Admin: 10/12/18 05:13 Dose: 112 mcg Losartan Potassium (Cozaar Tab*) 50 mg PO BID [facility] Last Admin: 10/12/18 09:32 Dose: 50 mg Montelukast Sodium (Singulair Tab*) 10 mg PO 1200 [facility] Last Admin: 10/12/18 12:57 Dose: 10 mg Spironolactone (Aldactone Tab*) 25 mg PO QAM [facility] Last Admin: 10/12/18 09:34 Dose: 25 mg Tamsulosin HCl (Flomax Cap*) 0.4 mg PO BEDTIME [facility] Last Admin: 10/11/18 21:41 Dose: 0.4 mg Timolol Maleate (Timoptic 0.5% Opth*) 2 drop RIGHT EYE BID [facility] Last Admin: 10/12/18 09:32 Dose: 2 drop Oxygen Devices in Use Now: Nasal Cannula Exam: Patient was siting on a bed comfortably. B/L Lower extremity swelling below knee. Chest: clear on ascultation. Result Diagrams: 10/11/18 02:40 10/12/18 07:40 Additional Lab and Data: Lab Results 10/11/18 Range/Units 02:27 ABG pH 7.29 L (7.35-7.45) ABG pCO2 51 H (35-45) mmHg ABG pO2 127 H (80-100) mmHg ABG HCO3 22.8 (19-31) mmol/L ABG O2 Saturation 98.5 H (94.0-98.0) % ABG Base Excess -2.7 L (-2.0-2.0) mmol/L Assess/Plan/Problems-Billing Assessment: 83 y/o M former smoker w/o PMH of CHF with reduced EF, CAD, status post coronary artery bypass grafting, HTN, Diabetes( taking insulin), CKD presented with SOB with acute exacerbation for 2 hr associated with PND and swelling of lower extremity but no chest pain. Admitted with diagnosis of CHF with acute exacerbation improved with furosemide, Bipap and Nitroglycerin paste. Patient is improving. - Patient Problems (1) CHF (congestive heart failure) Current Visit: Yes Status: Acute Code(s): I50.9 - HEART FAILURE, UNSPECIFIED SNOMED Code(s): 13309704 Comment: CHF with with preserved EF(55-60%). Chest xray showed b/l interstitial infiltrates, BNP was high and ABG showed respiratory acidosis. Improved with medication. Transthoracic echo showed improvement in his EF(55-60% ) compared to his last echo. His output was about 4500 ml so his diuretic was adjusted. Monitor oxygen saturation, daily weight and input and output. BMP to be monitored. (2) CAD (coronary artery disease) of artery bypass graft Current Visit: Yes Status: Acute Code(s): I25.810 - ATHEROSCLEROSIS OF CABG W/O ANGINA PECTORIS SNOMED Code(s): 798805708 Comment: CABG done in 2009. May be contributing to his heart failure due to ischemic cardiomyopathy. Allergic to aspirin and atorvastanin. (3) Hypertension Current Visit: Yes Status: Acute Code(s): I10 - ESSENTIAL (PRIMARY) HYPERTENSION SNOMED Code(s): 22397442 Comment: During presentation BP was high in 160-170/100-110. Now it is in 130 /70 mm hg. Patient is on amlopdipine, clonidine, losartan, spironolactone, labetolol(home medication). (4) Diabetes Current Visit: Yes Status: Acute Code(s): E11.9 - TYPE 2 DIABETES MELLITUS WITHOUT COMPLICATIONS SNOMED Code(s): 18769801 Comment: Patient is on insulin glargine 8U BID and insulin lispro added. Recent blood glucose is 167. Monitor blood glucose. (5) BPH (benign prostatic hyperplasia) Current Visit: Yes Status: Acute Code(s): N40.0 - BENIGN PROSTATIC HYPERPLASIA WITHOUT LOWER URINRY TRACT SYMP SNOMED Code(s): 543960603 Comment: Patient is on tamsulosin 0.4 mg daily. Have saldana catheter intact after severe phimosis. Inquire about saldana and if necessary may plan to remove. (6) Renal failure Current Visit: Yes Status: Acute Comment: Patient creatinine was 2.96 on presentation and latest creatinine is 3.12. His renal function is abnormal since 2014. Monitor BMP and input and output. Status and Disposition: Patient is admitted in medicine department. <Saran Messina - Last Filed: 10/12/18 18:53> Objective Active Medications: Acetaminophen (Tylenol Tab*) 975 mg PO Q8H PRN PRN Reason: FEVER/PAIN Amlodipine Besylate (Norvasc Tab*) 5 mg PO BEDTIME [facility] Last Admin: 10/11/18 21:40 Dose: 5 mg Brinzolamide (Azopt 1% Ophth Whitney(Nf)) 1 drop RIGHT EYE BID [facility] Last Admin: 10/12/18 09:35 Dose: Not Given Cholecalciferol (Vitamin D Tab*) 2,000 units PO 1200 [facility] Last Admin: 10/12/18 12:57 Dose: 2,000 units Clonidine HCl (Catapres Tab*) 0.2 mg PO TID [facility] Last Admin: 10/12/18 12:58 Dose: 0.2 mg Dextrose (D50w Syringe 50 Ml*) 12.5 gm IV PUSH .FOR FS < 60 - SS PRN PRN Reason: FS < 60 Enoxaparin Sodium (Lovenox(*)) 30 mg SUBCUT Q24H [facility] Last Admin: 10/11/18 21:44 Dose: 30 mg Furosemide (Lasix Iv*) 40 mg IV DAILY [facility] Last Admin: 10/12/18 05:13 Dose: 40 mg Insulin Glargine (Lantus(*)) 8 units SUBCUT BID [facility] Last Admin: 10/12/18 09:34 Dose: 8 units Insulin Human Lispro (Humalog*) 0 units SUBCUT AC [facility]; Protocol Last Admin: 10/12/18 17:14 Dose: 1 unit Labetalol HCl (Trandate Tab*) 300 mg PO TID [facility] Last Admin: 10/12/18 12:57 Dose: 300 mg Latanoprost (Xalatan 0.005%*) 1 drop BOTH EYES QPM [facility] Last Admin: 10/12/18 17:15 Dose: 1 drop Levothyroxine Sodium (Synthroid Tab*) 112 mcg PO 0600 [facility] Last Admin: 10/12/18 05:13 Dose: 112 mcg Losartan Potassium (Cozaar Tab*) 50 mg PO BID [facility] Last Admin: 10/12/18 09:32 Dose: 50 mg Montelukast Sodium (Singulair Tab*) 10 mg PO 1200 [facility] Last Admin: 10/12/18 12:57 Dose: 10 mg Spironolactone (Aldactone Tab*) 25 mg PO QAM [facility] Last Admin: 10/12/18 09:34 Dose: 25 mg Tamsulosin HCl (Flomax Cap*) 0.4 mg PO BEDTIME [facility] Last Admin: 10/11/18 21:41 Dose: 0.4 mg Timolol Maleate (Timoptic 0.5% Opth*) 2 drop RIGHT EYE BID [facility] Last Admin: 10/12/18 09:32 Dose: 2 drop Result Diagrams: 10/11/18 02:40 10/12/18 07:40 Assess/Plan/Problems-Billing S. feels much better O NAD OP clear, mmm rrr CTA b/l soft , NT/ND no c/d/e AOx3 83 yo M with HFpEF admitted with acute CHF exacerbation CHF - diastolic, acute -40 lasix IV today (1/2 of what he received yesterday) CKD - chronic -monitor in setting of lasix -dose med accordingly HTN - resistant on multiple meds DM -basal bolus insulin Attestation Documenting Resident: Saravanan Supervising Physician: Siddharth Attestation: This service has been performed in part by a resident under the direction of a teaching physician.Siddharth Phillips, performed the service, or was physically present during the critical, or chambers portions of the service, furnished by the resident. I participated in the management of the patient.
[2018-10-12] MEDS: Latanoprost 0.005%* 2.5 ml BTL BOTH EYES SCH (17:15)
[2018-10-12] MEDS: amLODIPine TAB* 5 MG PO SCH (21:11)
[2018-10-12] MEDS: Tamsulosin CAP* 0.4 MG PO SCH (21:11)
[2018-10-12] MEDS: Enoxaparin(*) 30 MG/0.3 ML SYR SUBCUT SCH (21:12)
[2018-10-13 00:23] LABS: ABS Eosinophils 0.3 10^3/ul (0-0.6); ABS Lymphocytes 0.8 10^3/ul (1.0-4.8); ABS Monocytes 0.7 10^3/ul (0-0.8); ABS Neutrophils 3.9 10^3/ul (1.5-7.7); Hematocrit 27 % (42-52); Hemoglobin 8.9 g/dL (14.0-18.0); Lymphocyte % 14.7 %; Mean Corpuscular HGB Conc 33 g/dL (31-36); Mean Corpuscular Hemoglobin 28 pg (27-31); Mean Corpuscular Volume 86 fL (80-94); Mean Platelet Volume 7.3 fL (7.4-10.4); Platelet Count 263 10^3/uL (150-450); Red Blood Count 3.18 10^6 /uL (4.18-5.48); Red Cell Distribution Width 16 % (10-15); White Blood Count 5.8 10^3/uL (3.5-10.8)
[2018-10-13 00:36] LABS: EGFR African American 20.6 (>60)
[2018-10-13] MEDS: Heparin DRIP 25,000 UNITS(*) 25,000 UNITS/500 ML BAG IV SCH (00:49)
[2018-10-13] MEDS: Heparin VIAL(*) 5000 UNITS/ML VIAL (FIVE THOUSAND) IV SCH (00:50)
[2018-10-13] MEDS: Levothyroxine TAB* 112 MCG TAB PO SCH (05:43)
[2018-10-13 06:41] LABS: ABS Basophils 0.1 10^3/ul (0-0.2); ABS Eosinophils 0.4 10^3/ul (0-0.6); ABS Monocytes 0.6 10^3/ul (0-0.8); ABS Neutrophils 4.4 10^3/ul (1.5-7.7); Eosinophil % 6.1 %; Hematocrit 29 % (42-52); Hemoglobin 9.4 g/dL (14.0-18.0); Lymphocyte % 15.6 %; Mean Corpuscular HGB Conc 33 g/dL (31-36); Mean Corpuscular Hemoglobin 28 pg (27-31); Mean Corpuscular Volume 86 fL (80-94); Mean Platelet Volume 7.6 fL (7.4-10.4); Platelet Count 283 10^3/uL (150-450); Red Blood Count 3.33 10^6 /uL (4.18-5.48); Red Cell Distribution Width 16 % (10-15); White Blood Count 6.5 10^3/uL (3.5-10.8)
[2018-10-13 07:06] LABS: BUN/Creatinine Ratio 15.2 (8-20); Calcium 8.6 mg/dL (8.6-10.3); EGFR African American 21.4 (>60); EGFR Non-African American 17.7 (>60); Potassium 4.1 mmol/L (3.5-5.0)
[2018-10-13] MEDS: Insulin LISPRO* 1 UNITS UNIT SUBCUT SCH ×3 (08:13→17:49)
[2018-10-13] MEDS: Losartan TAB* 25 MG PO SCH ×2 (08:54→21:34)
[2018-10-13] MEDS: cloNIDine TAB* 0.1 MG PO SCH ×3 (08:54→21:34)
[2018-10-13] MEDS: Spironolactone TAB* 25 MG PO SCH (08:54)
[2018-10-13] MEDS: Labetalol TAB* 300 MG PO SCH ×3 (08:55→21:34)
[2018-10-13] MEDS: Insulin GLARGINE(*) 1 UNITS UNIT SUBCUT SCH ×2 (08:56→21:36)
[2018-10-13] MEDS: Brinzolamide 1% OPHTH SOL(NF) BTL RIGHT EYE SCH ×2 (08:56→21:37)
[2018-10-13] MEDS: Timolol 0.5% OPTH.SOL* BTL RIGHT EYE SCH ×2 (08:58→21:36)
[2018-10-13] MEDS: Furosemide IV* 10 MG/ML VIAL (40 MG) IV SCH (08:59)
[2018-10-13] MEDS: Cholecalciferol TAB* 1000 UNITS PO SCH (12:02)
[2018-10-13] MEDS: Montelukast Sodium TAB* 10 MG PO SCH (12:02)
[2018-10-13] MEDS ORDERED: NS 0.9% 1000 ML** 1,000 ML IV SCH (15:45)
[2018-10-13] MEDS ORDERED: Warfarin TAB(*) 3 MG PO ONE (17:00)
[2018-10-13] MEDS: Latanoprost 0.005%* 2.5 ml BTL BOTH EYES SCH (18:30)
--- NOTE | 2018-10-13 18:33 | PN ---
<Adam Coemichlele - Last Filed: 10/13/18 18:25> Subjective Date of Service: 10/13/18 Interval History: Patient doesnot have any complaint. He feels well. Objective Active Medications: Acetaminophen (Tylenol Tab*) 975 mg PO Q8H PRN PRN Reason: FEVER/PAIN Amlodipine Besylate (Norvasc Tab*) 5 mg PO BEDTIME [facility] Last Admin: 10/12/18 21:11 Dose: 5 mg Brinzolamide (Azopt 1% Ophth Whitney(Nf)) 1 drop RIGHT EYE BID [facility] Last Admin: 10/13/18 08:56 Dose: Not Given Cholecalciferol (Vitamin D Tab*) 2,000 units PO 1200 [facility] Last Admin: 10/13/18 12:02 Dose: 2,000 units Clonidine HCl (Catapres Tab*) 0.2 mg PO TID [facility] Last Admin: 10/13/18 14:38 Dose: 0.2 mg Dextrose (D50w Syringe 50 Ml*) 12.5 gm IV PUSH .FOR FS < 60 - SS PRN PRN Reason: FS < 60 Heparin Sodium (Porcine) (Heparin Vial(*)) 0 units IV .PER PROTOCOL [facility] Last Admin: 10/13/18 00:50 Dose: 6,350 units Heparin Sodium/Dextrose (Heparin Drip 25,000 Units(*)) 25,000 units in 500 mls @ 0 mls/hr IV PER RATE [facility]; Protocol Last Admin: 10/13/18 00:49 Dose: 27 mls/hr Sodium Chloride (Ns 0.9% 1000 Ml) 1,000 mls @ 100 mls/hr IV PER RATE [facility] Stop: 10/14/18 05:00 Last Admin: 10/13/18 17:48 Dose: 100 mls/hr Insulin Glargine (Lantus(*)) 8 units SUBCUT BID [facility] Last Admin: 10/13/18 08:56 Dose: 8 units Insulin Human Lispro (Humalog*) 0 units SUBCUT AC [facility]; Protocol Last Admin: 10/13/18 17:49 Dose: 2 unit Labetalol HCl (Trandate Tab*) 300 mg PO TID [facility] Last Admin: 10/13/18 14:38 Dose: 300 mg Latanoprost (Xalatan 0.005%*) 1 drop BOTH EYES QPM [facility] Last Admin: 10/12/18 17:15 Dose: 1 drop Levothyroxine Sodium (Synthroid Tab*) 112 mcg PO 0600 [facility] Last Admin: 10/13/18 05:43 Dose: 112 mcg Losartan Potassium (Cozaar Tab*) 50 mg PO BID [facility] Last Admin: 10/13/18 08:54 Dose: 50 mg Montelukast Sodium (Singulair Tab*) 10 mg PO 1200 [facility] Last Admin: 10/13/18 12:02 Dose: 10 mg Pharmacy Profile Note (Coumadin Per Pharmacy*) 1 note FOLLOW UP .PER PHARMACY PROTOC [facility]; Protocol Spironolactone (Aldactone Tab*) 25 mg PO QAM [facility] Last Admin: 10/13/18 08:54 Dose: 25 mg Tamsulosin HCl (Flomax Cap*) 0.4 mg PO BEDTIME [facility] Last Admin: 10/12/18 21:11 Dose: 0.4 mg Timolol Maleate (Timoptic 0.5% Opth*) 2 drop RIGHT EYE BID [facility] Last Admin: 10/13/18 08:58 Dose: Not Given Vital Signs - 8 hr 10/13/18 10/13/18 11:15 15:45 Temperature 97.6 F 97.9 F Pulse Rate 68 60 Respiratory 16 20 Rate Blood Pressure 149/62 123/76 (mmHg) O2 Sat by Pulse 98 99 Oximetry Oxygen Devices in Use Now: None Exam: Patient is in no acute distress. Lower extremity swelling below kneees. Result Diagrams: 10/13/18 05:56 10/13/18 05:56 Additional Lab and Data: Lab Results 10/11/18 Range/Units 02:27 ABG pH 7.29 L (7.35-7.45) ABG pCO2 51 H (35-45) mmHg ABG pO2 127 H (80-100) mmHg ABG HCO3 22.8 (19-31) mmol/L ABG O2 Saturation 98.5 H (94.0-98.0) % ABG Base Excess -2.7 L (-2.0-2.0) mmol/L Assess/Plan/Problems-Billing 83 y/o M former smoker w/o PMH of CHF with reduced EF, CAD, status post coronary artery bypass grafting, HTN, Diabetes( taking insulin), CKD presented with SOB with acute exacerbation for 2 hr associated with PND and swelling of lower extremity but no chest pain. Admitted with diagnosis of CHF with acute exacerbation improved with furosemide, Bipap and Nitroglycerin paste. Patient kidney function is worsening and patient has atrial fibrillation. - Patient Problems (1) CHF (congestive heart failure) Current Visit: Yes Status: Acute Code(s): I50.9 - HEART FAILURE, UNSPECIFIED SNOMED Code(s): 10816437 Comment: CHF with with preserved EF(55-60%). Chest xray showed b/l interstitial infiltrates, BNP was high and ABG showed respiratory acidosis. Improved with medication. Transthoracic echo showed improvement in his EF(55-60% ) compared to his last echo. His output was about 20905 ml so his diuretic was adjusted. Monitor oxygen saturation, daily weight and input and output. BMP to be monitored. His diuretic was stopped due to worsening kidney function. (2) CAD (coronary artery disease) of artery bypass graft Current Visit: Yes Status: Acute Code(s): I25.810 - ATHEROSCLEROSIS OF CABG W/O ANGINA PECTORIS SNOMED Code(s): 086365670 Comment: CABG done in 2009. May be contributing to his heart failure due to ischemic cardiomyopathy. Allergic to aspirin and atorvastanin. (3) Hypertension Current Visit: Yes Status: Acute Code(s): I10 - ESSENTIAL (PRIMARY) HYPERTENSION SNOMED Code(s): 54950717 Comment: During presentation BP was high in 160-170/100-110. Now it is in 130 /70 mm hg. Patient is on amlopdipine, clonidine, losartan, spironolactone, labetolol(home medication). (4) Diabetes Current Visit: Yes Status: Acute Code(s): E11.9 - TYPE 2 DIABETES MELLITUS WITHOUT COMPLICATIONS SNOMED Code(s): 51340403 Comment: Patient is on insulin glargine 8U BID and insulin lispro added. Recent blood glucose is 167. Monitor blood glucose. (5) BPH (benign prostatic hyperplasia) Current Visit: Yes Status: Acute Code(s): N40.0 - BENIGN PROSTATIC HYPERPLASIA WITHOUT LOWER URINRY TRACT SYMP SNOMED Code(s): 648463829 Comment: Patient is on tamsulosin 0.4 mg daily. Have saldana catheter intact after severe phimosis. Inquire about saldana and if necessary may plan to remove. (6) Renal failure Current Visit: Yes Status: Acute Comment: Patient creatinine was 2.96 on presentation and latest creatinine is 3.3. His renal function is abnormal since 2013. Monitor BMP and input and output. (7) Atrial fibrillation Current Visit: Yes Status: Acute Code(s): I48.91 - UNSPECIFIED ATRIAL FIBRILLATION SNOMED Code(s): 41097620 Comment: Patient developed atrial fibrillation with normal heart rate. Patient is onheparin for bridging warfarin. Warfarin started. Heparin was put on hold due to prolonged aPTT. Status and Disposition: Patient is admitted in medicine department. <SiddharthSaran - Last Filed: 10/13/18 19:09> Objective Active Medications: Acetaminophen (Tylenol Tab*) 975 mg PO Q8H PRN PRN Reason: FEVER/PAIN Amlodipine Besylate (Norvasc Tab*) 5 mg PO BEDTIME [facility] Last Admin: 10/12/18 21:11 Dose: 5 mg Brinzolamide (Azopt 1% Ophth Whitney(Nf)) 1 drop RIGHT EYE BID [facility] Last Admin: 10/13/18 08:56 Dose: Not Given Cholecalciferol (Vitamin D Tab*) 2,000 units PO 1200 [facility] Last Admin: 10/13/18 12:02 Dose: 2,000 units Clonidine HCl (Catapres Tab*) 0.2 mg PO TID [facility] Last Admin: 10/13/18 14:38 Dose: 0.2 mg Dextrose (D50w Syringe 50 Ml*) 12.5 gm IV PUSH .FOR FS < 60 - SS PRN PRN Reason: FS < 60 Heparin Sodium (Porcine) (Heparin Vial(*)) 0 units IV .PER PROTOCOL [facility] Last Admin: 10/13/18 00:50 Dose: 6,350 units Heparin Sodium/Dextrose (Heparin Drip 25,000 Units(*)) 25,000 units in 500 mls @ 0 mls/hr IV PER RATE [facility]; Protocol Last Admin: 10/13/18 00:49 Dose: 27 mls/hr Sodium Chloride (Ns 0.9% 1000 Ml) 1,000 mls @ 100 mls/hr IV PER RATE [facility] Stop: 10/14/18 05:00 Last Admin: 10/13/18 17:48 Dose: 100 mls/hr Insulin Glargine (Lantus(*)) 8 units SUBCUT BID [facility] Last Admin: 10/13/18 08:56 Dose: 8 units Insulin Human Lispro (Humalog*) 0 units SUBCUT AC [facility]; Protocol Last Admin: 10/13/18 17:49 Dose: 2 unit Labetalol HCl (Trandate Tab*) 300 mg PO TID [facility] Last Admin: 10/13/18 14:38 Dose: 300 mg Latanoprost (Xalatan 0.005%*) 1 drop BOTH EYES QPM [facility] Last Admin: 10/13/18 18:30 Dose: 1 drop Levothyroxine Sodium (Synthroid Tab*) 112 mcg PO 0600 [facility] Last Admin: 10/13/18 05:43 Dose: 112 mcg Losartan Potassium (Cozaar Tab*) 50 mg PO BID [facility] Last Admin: 10/13/18 08:54 Dose: 50 mg Montelukast Sodium (Singulair Tab*) 10 mg PO 1200 [facility] Last Admin: 10/13/18 12:02 Dose: 10 mg Pharmacy Profile Note (Coumadin Per Pharmacy*) 1 note FOLLOW UP .PER PHARMACY PROTOC [facility]; Protocol Spironolactone (Aldactone Tab*) 25 mg PO QAM [facility] Last Admin: 10/13/18 08:54 Dose: 25 mg Tamsulosin HCl (Flomax Cap*) 0.4 mg PO BEDTIME [facility] Last Admin: 10/12/18 21:11 Dose: 0.4 mg Timolol Maleate (Timoptic 0.5% Opth*) 2 drop RIGHT EYE BID [facility] Last Admin: 10/13/18 08:58 Dose: Not Given Vital Signs - 8 hr 10/13/18 10/13/18 11:15 15:45 Temperature 97.6 F 97.9 F Pulse Rate 68 60 Respiratory 16 20 Rate Blood Pressure 149/62 123/76 (mmHg) O2 Sat by Pulse 98 99 Oximetry Result Diagrams: 10/13/18 05:56 10/13/18 05:56 Assess/Plan/Problems-Billing Assessment: 83 M p/w HFpEF with stay c/b new afib afib -heparin to coumadin bridge -CKD limiting medication choices for AC -discussed with pt HFpEF -received 40mg lasix 8:59 am before discontinued. heavy diuresis yesterday. Will replace 1400cc fluid today to preserve renal fxn -BMP in AM DM -good control Attestation Documenting Resident: Saravanan Supervising Physician: Siddharth Attestation: This service has been performed in part by a resident under the direction of a teaching physician.ISiddharth, performed the service, or was physically present during the critical, or chambers portions of the service, furnished by the resident. I participated in the management of the patient.
[2018-10-13] MEDS: amLODIPine TAB* 5 MG PO SCH (21:34)
[2018-10-13] MEDS: Tamsulosin CAP* 0.4 MG PO SCH (21:36)
[2018-10-14 05:47] LABS: ABS Basophils 0.1 10^3/ul (0-0.2); ABS Eosinophils 0.4 10^3/ul (0-0.6); ABS Lymphocytes 0.9 10^3/ul (1.0-4.8); ABS Monocytes 0.6 10^3/ul (0-0.8); ABS Neutrophils 3.7 10^3/ul (1.5-7.7); Eosinophil % 6.5 %; Hematocrit 28 % (42-52); Hemoglobin 9.3 g/dL (14.0-18.0); Lymphocyte % 15.5 %; Mean Corpuscular HGB Conc 33 g/dL (31-36); Mean Corpuscular Hemoglobin 28 pg (27-31); Mean Corpuscular Volume 85 fL (80-94); Mean Platelet Volume 7.2 fL (7.4-10.4); Platelet Count 281 10^3/uL (150-450); Red Blood Count 3.29 10^6 /uL (4.18-5.48); Red Cell Distribution Width 16 % (10-15); White Blood Count 5.5 10^3/uL (3.5-10.8)
[2018-10-14 05:51] LABS: INR 1.32 (0.82-1.09)
[2018-10-14 05:57] LABS: BUN/Creatinine Ratio 15.5 (8-20); Calcium 8.4 mg/dL (8.6-10.3); EGFR Non-African American 17.4 (>60); Potassium 4.1 mmol/L (3.5-5.0)
[2018-10-14] MEDS: Levothyroxine TAB* 112 MCG TAB PO SCH (06:15)
[2018-10-14] MEDS: Heparin DRIP 25,000 UNITS(*) 25,000 UNITS/500 ML BAG IV SCH (06:43)
[2018-10-14] MEDS: Insulin LISPRO* 1 UNITS UNIT SUBCUT SCH ×3 (09:29→17:27)
[2018-10-14] MEDS: Losartan TAB* 25 MG PO SCH ×2 (09:41→22:01)
[2018-10-14] MEDS: cloNIDine TAB* 0.1 MG PO SCH ×3 (09:43→22:00)
[2018-10-14] MEDS: Spironolactone TAB* 25 MG PO SCH (09:43)
[2018-10-14] MEDS: Labetalol TAB* 300 MG PO SCH ×3 (09:44→22:01)
[2018-10-14] MEDS: Insulin GLARGINE(*) 1 UNITS UNIT SUBCUT SCH ×2 (09:44→22:01)
[2018-10-14] MEDS: Timolol 0.5% OPTH.SOL* BTL RIGHT EYE SCH ×2 (09:46→22:01)
[2018-10-14] MEDS: Brinzolamide 1% OPHTH SOL(NF) BTL RIGHT EYE SCH ×2 (09:52→22:05)
[2018-10-14] MEDS: Cholecalciferol TAB* 1000 UNITS PO SCH (12:46)
[2018-10-14] MEDS: Montelukast Sodium TAB* 10 MG PO SCH (12:46)
[2018-10-14] MEDS ORDERED: Warfarin TAB(*) 3 MG PO ONE (17:00)
[2018-10-14] MEDS: Latanoprost 0.005%* 2.5 ml BTL BOTH EYES SCH (17:28)
--- NOTE | 2018-10-14 18:07 | PN ---
<AtifLor correa - Last Filed: 10/14/18 18:02> Subjective Date of Service: 10/14/18 Interval History: Patient doesnot have any fresh complaint. Objective Active Medications: Acetaminophen (Tylenol Tab*) 975 mg PO Q8H PRN PRN Reason: FEVER/PAIN Amlodipine Besylate (Norvasc Tab*) 5 mg PO BEDTIME [facility] Last Admin: 10/13/18 21:34 Dose: 5 mg Brinzolamide (Azopt 1% Ophth Whitney(Nf)) 1 drop RIGHT EYE BID [facility] Last Admin: 10/14/18 09:52 Dose: Not Given Cholecalciferol (Vitamin D Tab*) 2,000 units PO 1200 [facility] Last Admin: 10/14/18 12:46 Dose: 2,000 units Clonidine HCl (Catapres Tab*) 0.2 mg PO TID [facility] Last Admin: 10/14/18 14:04 Dose: 0.2 mg Dextrose (D50w Syringe 50 Ml*) 12.5 gm IV PUSH .FOR FS < 60 - SS PRN PRN Reason: FS < 60 Heparin Sodium (Porcine) (Heparin Vial(*)) 0 units IV .PER PROTOCOL [facility] Last Admin: 10/13/18 00:50 Dose: 6,350 units Heparin Sodium/Dextrose (Heparin Drip 25,000 Units(*)) 25,000 units in 500 mls @ 0 mls/hr IV PER RATE [facility]; Protocol Last Admin: 10/14/18 06:43 Dose: 7 mls/hr Insulin Glargine (Lantus(*)) 8 units SUBCUT BID [facility] Last Admin: 10/14/18 09:44 Dose: 8 units Insulin Human Lispro (Humalog*) 0 units SUBCUT AC [facility]; Protocol Last Admin: 10/14/18 17:27 Dose: 1 unit Labetalol HCl (Trandate Tab*) 300 mg PO TID [facility] Last Admin: 10/14/18 14:05 Dose: 300 mg Latanoprost (Xalatan 0.005%*) 1 drop BOTH EYES QPM [facility] Last Admin: 10/14/18 17:28 Dose: 1 drop Levothyroxine Sodium (Synthroid Tab*) 112 mcg PO 0600 [facility] Last Admin: 10/14/18 06:15 Dose: 112 mcg Losartan Potassium (Cozaar Tab*) 50 mg PO BID [facility] Last Admin: 10/14/18 09:41 Dose: 50 mg Montelukast Sodium (Singulair Tab*) 10 mg PO 1200 [facility] Last Admin: 10/14/18 12:46 Dose: 10 mg Pharmacy Profile Note (Coumadin Per Pharmacy*) 1 note FOLLOW UP .PER PHARMACY PROTOC [facility]; Protocol Spironolactone (Aldactone Tab*) 25 mg PO QAM [facility] Last Admin: 10/14/18 09:43 Dose: 25 mg Tamsulosin HCl (Flomax Cap*) 0.4 mg PO BEDTIME [facility] Last Admin: 10/13/18 21:36 Dose: 0.4 mg Timolol Maleate (Timoptic 0.5% Opth*) 2 drop RIGHT EYE BID [facility] Last Admin: 10/14/18 09:46 Dose: 2 drop Vital Signs - 8 hr 10/14/18 10/14/18 12:05 15:15 Temperature 98.7 F 97.9 F Pulse Rate 71 75 Respiratory 16 18 Rate Blood Pressure 141/73 122/69 (mmHg) O2 Sat by Pulse 98 98 Oximetry Oxygen Devices in Use Now: None Exam: Patient is sitting on bed and he is not in acute distress. General: B/L swelling of lower limb upto mid calf. CVS:No murmur or gallops. Respiratory: Normal vesicular breath sound heard. GI: Normal bowel sound heard. Neuro:Alert, conscious and oriented. Result Diagrams: 10/14/18 05:26 10/14/18 05:26 Additional Lab and Data: Lab Results 10/11/18 Range/Units 02:27 ABG pH 7.29 L (7.35-7.45) ABG pCO2 51 H (35-45) mmHg ABG pO2 127 H (80-100) mmHg ABG HCO3 22.8 (19-31) mmol/L ABG O2 Saturation 98.5 H (94.0-98.0) % ABG Base Excess -2.7 L (-2.0-2.0) mmol/L Assess/Plan/Problems-Billing Assessment: 83 y/o M former smoker w/o PMH of CHF with reduced EF, CAD, status post coronary artery bypass grafting, HTN, Diabetes( taking insulin), CKD presented with SOB with acute exacerbation for 2 hr associated with PND and swelling of lower extremity but no chest pain. Admitted with diagnosis of CHF with acute exacerbation improved with furosemide, Bipap and Nitroglycerin paste. Patient kidney function is worsening and patient has atrial fibrillation. - Patient Problems (1) CHF (congestive heart failure) Current Visit: Yes Status: Acute Code(s): I50.9 - HEART FAILURE, UNSPECIFIED SNOMED Code(s): 37344400 Comment: CHF with with preserved EF(55-60%). Chest xray showed b/l interstitial infiltrates, BNP was high and ABG showed respiratory acidosis. Improved with medication. Transthoracic echo showed improvement in his EF(55-60% ) compared to his last echo. Monitor oxygen saturation, daily weight and input and output. BMP to be monitored. His diuretic was stopped due to worsening kidney function. (2) CAD (coronary artery disease) of artery bypass graft Current Visit: Yes Status: Acute Code(s): I25.810 - ATHEROSCLEROSIS OF CABG W/O ANGINA PECTORIS SNOMED Code(s): 066574498 Comment: CABG done in 2009. May be contributing to his heart failure due to ischemic cardiomyopathy. Allergic to aspirin and atorvastanin. (3) Hypertension Current Visit: Yes Status: Acute Code(s): I10 - ESSENTIAL (PRIMARY) HYPERTENSION SNOMED Code(s): 11512500 Comment: During presentation BP was high in 160-170/100-110. Now it is in 130 /70 mm hg. Patient is on amlopdipine, clonidine, losartan, spironolactone, labetolol(home medication). (4) Diabetes Current Visit: Yes Status: Acute Code(s): E11.9 - TYPE 2 DIABETES MELLITUS WITHOUT COMPLICATIONS SNOMED Code(s): 03881717 Comment: Patient is on insulin glargine 8U BID and insulin lispro added. Recent blood glucose is 167. Monitor blood glucose. (5) BPH (benign prostatic hyperplasia) Current Visit: Yes Status: Acute Code(s): N40.0 - BENIGN PROSTATIC HYPERPLASIA WITHOUT LOWER URINRY TRACT SYMP SNOMED Code(s): 774781062 Comment: Patient is on tamsulosin 0.4 mg daily. Have saldana catheter intact after severe phimosis. Inquire about saldana and if necessary may plan to remove. (6) Renal failure Current Visit: Yes Status: Acute Comment: Patient creatinine was 2.96 on presentation and latest creatinine is 3.3. His renal function is abnormal since 2014. Monitor BMP and input and output. (7) Atrial fibrillation Current Visit: Yes Status: Acute Code(s): I48.91 - UNSPECIFIED ATRIAL FIBRILLATION SNOMED Code(s): 68361302 Comment: Patient developed atrial fibrillation with normal heart rate. Patient is onheparin for bridging warfarin. Warfarin started. aptt is 55. Status and Disposition: Patient is admitted in medicine department. Attending: Saran Messina <Saran Messina - Last Filed: 10/14/18 18:38> Objective Active Medications: Acetaminophen (Tylenol Tab*) 975 mg PO Q8H PRN PRN Reason: FEVER/PAIN Amlodipine Besylate (Norvasc Tab*) 5 mg PO BEDTIME [facility] Last Admin: 10/13/18 21:34 Dose: 5 mg Brinzolamide (Azopt 1% Ophth Whitney(Nf)) 1 drop RIGHT EYE BID [facility] Last Admin: 10/14/18 09:52 Dose: Not Given Cholecalciferol (Vitamin D Tab*) 2,000 units PO 1200 [facility] Last Admin: 10/14/18 12:46 Dose: 2,000 units Clonidine HCl (Catapres Tab*) 0.2 mg PO TID [facility] Last Admin: 10/14/18 14:04 Dose: 0.2 mg Dextrose (D50w Syringe 50 Ml*) 12.5 gm IV PUSH .FOR FS < 60 - SS PRN PRN Reason: FS < 60 Heparin Sodium (Porcine) (Heparin Vial(*)) 0 units IV .PER PROTOCOL [facility] Last Admin: 10/14/18 18:22 Dose: 3,200 units Heparin Sodium/Dextrose (Heparin Drip 25,000 Units(*)) 25,000 units in 500 mls @ 0 mls/hr IV PER RATE [facility]; Protocol Last Admin: 10/14/18 06:43 Dose: 7 mls/hr Insulin Glargine (Lantus(*)) 8 units SUBCUT BID [facility] Last Admin: 10/14/18 09:44 Dose: 8 units Insulin Human Lispro (Humalog*) 0 units SUBCUT AC [facility]; Protocol Last Admin: 10/14/18 17:27 Dose: 1 unit Labetalol HCl (Trandate Tab*) 300 mg PO TID [facility] Last Admin: 10/14/18 14:05 Dose: 300 mg Latanoprost (Xalatan 0.005%*) 1 drop BOTH EYES QPM [facility] Last Admin: 10/14/18 17:28 Dose: 1 drop Levothyroxine Sodium (Synthroid Tab*) 112 mcg PO 0600 [facility] Last Admin: 10/14/18 06:15 Dose: 112 mcg Losartan Potassium (Cozaar Tab*) 50 mg PO BID [facility] Last Admin: 10/14/18 09:41 Dose: 50 mg Montelukast Sodium (Singulair Tab*) 10 mg PO 1200 [facility] Last Admin: 10/14/18 12:46 Dose: 10 mg Pharmacy Profile Note (Coumadin Per Pharmacy*) 1 note FOLLOW UP .PER PHARMACY PROTOC [facility]; Protocol Spironolactone (Aldactone Tab*) 25 mg PO QAM [facility] Last Admin: 10/14/18 09:43 Dose: 25 mg Tamsulosin HCl (Flomax Cap*) 0.4 mg PO BEDTIME [facility] Last Admin: 10/13/18 21:36 Dose: 0.4 mg Timolol Maleate (Timoptic 0.5% Opth*) 2 drop RIGHT EYE BID [facility] Last Admin: 10/14/18 09:46 Dose: 2 drop Vital Signs - 8 hr 10/14/18 10/14/18 12:05 15:15 Temperature 98.7 F 97.9 F Pulse Rate 71 75 Respiratory 16 18 Rate Blood Pressure 141/73 122/69 (mmHg) O2 Sat by Pulse 98 98 Oximetry Result Diagrams: 10/14/18 05:26 10/14/18 05:26 Assess/Plan/Problems-Billing younger than stated age, NAD op clear, mmm IRIR CTA b/l soft NT/ND 1-2+ LE edema Assessment: 83 yo M admitted with dCHF exacerbation CHF- holding lasix Acute on chronic kidney failure - -holding lasix Afib -heparin to coumadin bridge Attestation Documenting Resident: Saravanan Supervising Physician: Siddharth Attestation: This service has been performed in part by a resident under the direction of a teaching physician.Siddharth Phillips, performed the service, or was physically present during the critical, or chambers portions of the service, furnished by the resident. I participated in the management of the patient.
[2018-10-14] MEDS: Heparin VIAL(*) 5000 UNITS/ML VIAL (FIVE THOUSAND) IV SCH (18:22)
[2018-10-14] MEDS: amLODIPine TAB* 5 MG PO SCH (22:01)
[2018-10-14] MEDS: Tamsulosin CAP* 0.4 MG PO SCH (22:01)
[2018-10-15] MEDS: Levothyroxine TAB* 112 MCG TAB PO SCH (06:17)
[2018-10-15 06:18] LABS: ABS Eosinophils 0.4 10^3/ul (0-0.6); ABS Monocytes 0.6 10^3/ul (0-0.8); ABS Neutrophils 3.7 10^3/ul (1.5-7.7); Eosinophil % 6.8 %; Hematocrit 30 % (42-52); Hemoglobin 9.8 g/dL (14.0-18.0); Lymphocyte % 17.1 %; Mean Corpuscular HGB Conc 33 g/dL (31-36); Mean Corpuscular Hemoglobin 29 pg (27-31); Mean Corpuscular Volume 85 fL (80-94); Mean Platelet Volume 7.5 fL (7.4-10.4); Platelet Count 281 10^3/uL (150-450); Red Blood Count 3.45 10^6 /uL (4.18-5.48); Red Cell Distribution Width 16 % (10-15); White Blood Count 5.7 10^3/uL (3.5-10.8)
[2018-10-15 06:24] LABS: INR 1.38 (0.82-1.09)
[2018-10-15 06:39] LABS: BUN/Creatinine Ratio 16.5 (8-20); Calcium 8.5 mg/dL (8.6-10.3); EGFR African American 21.5 (>60); EGFR Non-African American 17.8 (>60); Potassium 4.4 mmol/L (3.5-5.0)
[2018-10-15] MEDS: Brinzolamide 1% OPHTH SOL(NF) BTL RIGHT EYE SCH ×2 (08:55→21:38)
[2018-10-15] MEDS: Insulin LISPRO* 1 UNITS UNIT SUBCUT SCH ×3 (08:55→17:03)
[2018-10-15] MEDS: Losartan TAB* 25 MG PO SCH ×2 (09:07→21:39)
[2018-10-15] MEDS: Insulin GLARGINE(*) 1 UNITS UNIT SUBCUT SCH ×2 (09:07→21:42)
[2018-10-15] MEDS: Timolol 0.5% OPTH.SOL* BTL RIGHT EYE SCH ×2 (09:07→21:41)
[2018-10-15] MEDS: Spironolactone TAB* 25 MG PO SCH (09:07)
[2018-10-15] MEDS: Labetalol TAB* 300 MG PO SCH ×3 (09:07→21:40)
[2018-10-15] MEDS: cloNIDine TAB* 0.1 MG PO SCH ×3 (09:07→21:40)
--- NOTE | 2018-10-15 10:43 | PN ---
Subjective Date of Service: 10/15/18 Interval History: Breathing feels good, no SOB No CP, N/V, LH Objective Active Medications: Acetaminophen (Tylenol Tab*) 975 mg PO Q8H PRN PRN Reason: FEVER/PAIN Amlodipine Besylate (Norvasc Tab*) 5 mg PO BEDTIME [facility] Last Admin: 10/14/18 22:01 Dose: 5 mg Brinzolamide (Azopt 1% Ophth Whitney(Nf)) 1 drop RIGHT EYE BID [facility] Last Admin: 10/15/18 08:55 Dose: Not Given Cholecalciferol (Vitamin D Tab*) 2,000 units PO 1200 [facility] Last Admin: 10/14/18 12:46 Dose: 2,000 units Clonidine HCl (Catapres Tab*) 0.2 mg PO TID [facility] Last Admin: 10/15/18 09:07 Dose: 0.2 mg Dextrose (D50w Syringe 50 Ml*) 12.5 gm IV PUSH .FOR FS < 60 - SS PRN PRN Reason: FS < 60 Heparin Sodium (Porcine) (Heparin Vial(*)) 0 units IV .PER PROTOCOL [facility] Last Admin: 10/14/18 18:22 Dose: 3,200 units Heparin Sodium/Dextrose (Heparin Drip 25,000 Units(*)) 25,000 units in 500 mls @ 0 mls/hr IV PER RATE [facility]; Protocol Last Admin: 10/14/18 06:43 Dose: 7 mls/hr Insulin Glargine (Lantus(*)) 8 units SUBCUT BID [facility] Last Admin: 10/15/18 09:07 Dose: 8 units Insulin Human Lispro (Humalog*) 0 units SUBCUT AC [facility]; Protocol Last Admin: 10/15/18 08:55 Dose: Not Given Labetalol HCl (Trandate Tab*) 300 mg PO TID [facility] Last Admin: 10/15/18 09:07 Dose: 300 mg Latanoprost (Xalatan 0.005%*) 1 drop BOTH EYES QPM [facility] Last Admin: 10/14/18 17:28 Dose: 1 drop Levothyroxine Sodium (Synthroid Tab*) 112 mcg PO 0600 [facility] Last Admin: 10/15/18 06:17 Dose: 112 mcg Losartan Potassium (Cozaar Tab*) 50 mg PO BID [facility] Last Admin: 10/15/18 09:07 Dose: 50 mg Montelukast Sodium (Singulair Tab*) 10 mg PO 1200 [facility] Last Admin: 10/14/18 12:46 Dose: 10 mg Spironolactone (Aldactone Tab*) 25 mg PO QAM [facility] Last Admin: 10/15/18 09:07 Dose: 25 mg Tamsulosin HCl (Flomax Cap*) 0.4 mg PO BEDTIME [facility] Last Admin: 10/14/18 22:01 Dose: 0.4 mg Timolol Maleate (Timoptic 0.5% Opth*) 2 drop RIGHT EYE BID [facility] Last Admin: 10/15/18 09:07 Dose: 2 drop Warfarin Sodium (Coumadin Tab(*)) 5 mg PO ONCE ONE; Protocol Stop: 10/15/18 17:01 Vital Signs - 8 hr 10/15/18 10/15/18 03:14 07:15 Temperature 97.8 F 98.3 F Pulse Rate 67 66 Respiratory 16 19 Rate Blood Pressure 123/53 148/75 (mmHg) O2 Sat by Pulse 99 97 Oximetry Oxygen Devices in Use Now: None Appearance: sitting up, NAD Eyes: PERRLA Ears/Nose/Mouth/Throat: NL Teeth, Lips, Gums, Clear Oropharnyx, Mucous Membranes Moist Neck: NL Appearance and Movements; NL JVP, Trachea Midline Respiratory: Symmetrical Chest Expansion and Respiratory Effort, Clear to Auscultation Cardiovascular: - - IRIR Lymphatic: No Cervical Adenopathy Extremities: - - 1-2+ b/l LE edema Neurological: Alert and Oriented x 3 Result Diagrams: 10/15/18 05:42 10/15/18 05:42 Additional Lab and Data: Lab Results 10/11/18 Range/Units 02:27 ABG pH 7.29 L (7.35-7.45) ABG pCO2 51 H (35-45) mmHg ABG pO2 127 H (80-100) mmHg ABG HCO3 22.8 (19-31) mmol/L ABG O2 Saturation 98.5 H (94.0-98.0) % ABG Base Excess -2.7 L (-2.0-2.0) mmol/L Microbiology and Other Data: Microbiology 10/11/18 02:40 Aerobic Blood Culture - Preliminary Blood Venous No Growth Day 4 Anaerobic Blood Culture - Preliminary No Growth Day 4 07/16/19 02:49 Aerobic Blood Culture - Preliminary Blood Venous No Growth Day 4 Anaerobic Blood Culture - Preliminary No Growth Day 4 Assess/Plan/Problems-Billing 83 yo M h/o CKD and HFpEF pw acute CHF exacerbation with stay notable for new afib - Patient Problems (1) Atrial fibrillation Comment: rate controlled afib creatinine clearance is 16 - will not start on NOAC heparin to coumadin bridge 5mg coumadin today then reassess dose again tomorrow (2) CHF (congestive heart failure) Comment: Acute, decompensated Improved with lasix Holding further diuretics in setting of acute on chronic DURAN (3) Diabetes Comment: Pre prandial FSG 96 - continue basal (lantus) bolus (lispro regimen) with FSG qachs (4) Hypertension Comment: controlled on amlopdipine, clonidine, losartan, spironolactone, labetolol (5) DVT prophylaxis Comment: heparin gtt Status and Disposition: Medicine inpatient for heparin to coumadin bridge
[2018-10-15] MEDS: Cholecalciferol TAB* 1000 UNITS PO SCH (12:40)
[2018-10-15] MEDS: Montelukast Sodium TAB* 10 MG PO SCH (12:40)
[2018-10-15] MEDS ORDERED: Warfarin TAB(*) 5 MG PO SCH (17:00)
[2018-10-15] MEDS ORDERED: Warfarin TAB(*) 5 MG PO ONE (17:00)
[2018-10-15] MEDS: Latanoprost 0.005%* 2.5 ml BTL BOTH EYES SCH (17:32)
[2018-10-15] MEDS: Tamsulosin CAP* 0.4 MG PO SCH (21:40)
[2018-10-15] MEDS: amLODIPine TAB* 5 MG PO SCH (21:40)
[2018-10-16 05:41] LABS: ABS Basophils 0.1 10^3/ul (0-0.2); ABS Eosinophils 0.4 10^3/ul (0-0.6); ABS Monocytes 0.6 10^3/ul (0-0.8); ABS Neutrophils 3.5 10^3/ul (1.5-7.7); Eosinophil % 7.7 %; Hematocrit 27 % (42-52); Hemoglobin 9.1 g/dL (14.0-18.0); Lymphocyte % 17.5 %; Mean Corpuscular HGB Conc 33 g/dL (31-36); Mean Corpuscular Hemoglobin 29 pg (27-31); Mean Corpuscular Volume 85 fL (80-94); Mean Platelet Volume 7.3 fL (7.4-10.4); Platelet Count 245 10^3/uL (150-450); Red Blood Count 3.21 10^6 /uL (4.18-5.48); Red Cell Distribution Width 16 % (10-15); White Blood Count 5.5 10^3/uL (3.5-10.8)
[2018-10-16 05:51] LABS: INR 1.88 (0.82-1.09)
[2018-10-16 06:03] LABS: BUN/Creatinine Ratio 16.7 (8-20); Calcium 8.4 mg/dL (8.6-10.3); EGFR African American 21.4 (>60); EGFR Non-African American 17.7 (>60); Potassium 4.7 mmol/L (3.5-5.0)
[2018-10-16 06:26] LABS: Activated Partial Thrombo Time 70.8 seconds (26.0-38.0)
[2018-10-16] MEDS: Levothyroxine TAB* 112 MCG TAB PO SCH (07:00)
[2018-10-16] MEDS: Insulin LISPRO* 1 UNITS UNIT SUBCUT SCH ×3 (08:27→18:05)
[2018-10-16] MEDS: Brinzolamide 1% OPHTH SOL(NF) BTL RIGHT EYE SCH ×2 (08:35→21:18)
[2018-10-16] MEDS: Insulin GLARGINE(*) 1 UNITS UNIT SUBCUT SCH ×2 (08:48→21:13)
[2018-10-16] MEDS: Spironolactone TAB* 25 MG PO SCH (08:48)
[2018-10-16] MEDS: Labetalol TAB* 300 MG PO SCH ×3 (08:48→21:13)
[2018-10-16] MEDS: cloNIDine TAB* 0.1 MG PO SCH ×3 (08:48→21:12)
[2018-10-16] MEDS: Losartan TAB* 25 MG PO SCH ×2 (08:48→21:12)
[2018-10-16] MEDS: Timolol 0.5% OPTH.SOL* BTL RIGHT EYE SCH ×2 (08:49→21:14)
[2018-10-16] MEDS: Heparin DRIP 25,000 UNITS(*) 25,000 UNITS/500 ML BAG IV SCH (12:02)
[2018-10-16] MEDS: Cholecalciferol TAB* 1000 UNITS PO SCH (13:19)
[2018-10-16] MEDS: Montelukast Sodium TAB* 10 MG PO SCH (13:20)
--- NOTE | 2018-10-16 15:09 | PN ---
<AtifmadelineHarrietrenee - Last Filed: 10/16/18 15:04> Subjective Date of Service: 10/16/18 Interval History: Patient doesnot have any fresh complaint. Objective Active Medications: Acetaminophen (Tylenol Tab*) 975 mg PO Q8H PRN PRN Reason: FEVER/PAIN Amlodipine Besylate (Norvasc Tab*) 5 mg PO BEDTIME [facility] Last Admin: 10/15/18 21:40 Dose: 5 mg Brinzolamide (Azopt 1% Ophth Whitney(Nf)) 1 drop RIGHT EYE BID [facility] Last Admin: 10/16/18 08:35 Dose: Not Given Cholecalciferol (Vitamin D Tab*) 2,000 units PO 1200 [facility] Last Admin: 10/16/18 13:19 Dose: 2,000 units Clonidine HCl (Catapres Tab*) 0.2 mg PO TID [facility] Last Admin: 10/16/18 14:21 Dose: 0.2 mg Dextrose (D50w Syringe 50 Ml*) 12.5 gm IV PUSH .FOR FS < 60 - SS PRN PRN Reason: FS < 60 Heparin Sodium (Porcine) (Heparin Vial(*)) 0 units IV .PER PROTOCOL [facility] Last Admin: 10/14/18 18:22 Dose: 3,200 units Heparin Sodium/Dextrose (Heparin Drip 25,000 Units(*)) 25,000 units in 500 mls @ 0 mls/hr IV PER RATE [facility]; Protocol Last Admin: 10/16/18 12:02 Dose: 11 mls/hr Insulin Glargine (Lantus(*)) 8 units SUBCUT BID [facility] Last Admin: 10/16/18 08:48 Dose: 8 units Insulin Human Lispro (Humalog*) 0 units SUBCUT AC [facility]; Protocol Last Admin: 10/16/18 13:19 Dose: 2 unit Labetalol HCl (Trandate Tab*) 300 mg PO TID [facility] Last Admin: 10/16/18 14:21 Dose: 300 mg Latanoprost (Xalatan 0.005%*) 1 drop BOTH EYES QPM [facility] Last Admin: 10/15/18 17:32 Dose: 1 drop Levothyroxine Sodium (Synthroid Tab*) 112 mcg PO 0600 [facility] Last Admin: 10/16/18 07:00 Dose: 112 mcg Losartan Potassium (Cozaar Tab*) 50 mg PO BID [facility] Last Admin: 10/16/18 08:48 Dose: 50 mg Montelukast Sodium (Singulair Tab*) 10 mg PO 1200 [facility] Last Admin: 10/16/18 13:20 Dose: 10 mg Spironolactone (Aldactone Tab*) 25 mg PO QAM [facility] Last Admin: 10/16/18 08:48 Dose: 25 mg Tamsulosin HCl (Flomax Cap*) 0.4 mg PO BEDTIME [facility] Last Admin: 10/15/18 21:40 Dose: 0.4 mg Timolol Maleate (Timoptic 0.5% Opth*) 2 drop RIGHT EYE BID [facility] Last Admin: 10/16/18 08:49 Dose: 2 drop Warfarin Sodium (Coumadin Tab(*)) 3 mg PO ONCE@1700 ONE; Protocol Stop: 10/16/18 17:01 Vital Signs - 8 hr 10/16/18 10/16/18 10/16/18 07:29 07:57 11:13 Temperature 98.1 F 98.1 F Pulse Rate 64 65 Respiratory 18 18 20 Rate Blood Pressure 156/75 147/81 (mmHg) O2 Sat by Pulse 99 98 Oximetry Oxygen Devices in Use Now: None Exam: Patient is sitting on bed and he is not in acute distress. General: B/L swelling of lower limb upto distal 1/3rd of leg. CVS:No murmur or gallops. Respiratory: Normal vesicular breath sound heard. GI: Normal bowel sound heard. Neuro:Alert, conscious and oriented. Result Diagrams: 10/16/18 05:09 10/16/18 05:13 Additional Lab and Data: Lab Results 10/11/18 Range/Units 02:27 ABG pH 7.29 L (7.35-7.45) ABG pCO2 51 H (35-45) mmHg ABG pO2 127 H (80-100) mmHg ABG HCO3 22.8 (19-31) mmol/L ABG O2 Saturation 98.5 H (94.0-98.0) % ABG Base Excess -2.7 L (-2.0-2.0) mmol/L Microbiology and Other Data: Microbiology 10/11/18 02:40 Aerobic Blood Culture - Preliminary Blood Venous No Growth Day 4 Anaerobic Blood Culture - Preliminary No Growth Day 4 10/11/18 02:49 Aerobic Blood Culture - Preliminary Blood Venous No Growth Day 4 Anaerobic Blood Culture - Preliminary No Growth Day 4 Assess/Plan/Problems-Billing 83 y/o M former smoker w/o PMH of CHF with reduced EF, CAD, status post coronary artery bypass grafting, HTN, Diabetes( taking insulin), CKD presented with SOB with acute exacerbation for 2 hr associated with PND and swelling of lower extremity but no chest pain. Admitted with diagnosis of CHF with acute exacerbation improved with furosemide, Bipap and Nitroglycerin paste. Patient kidney function is worsening and patient has atrial fibrillation. Patient is on warfarin and heparin bridge. - Patient Problems (1) CHF (congestive heart failure) Current Visit: Yes Status: Acute Code(s): I50.9 - HEART FAILURE, UNSPECIFIED SNOMED Code(s): 70878568 Comment: Acute, decompensated Improved with lasix Holding further diuretics in setting of acute on chronic DURAN (2) CAD (coronary artery disease) of artery bypass graft Current Visit: Yes Status: Acute Code(s): I25.810 - ATHEROSCLEROSIS OF CABG W/O ANGINA PECTORIS SNOMED Code(s): 280841462 Comment: CABG done in 2009. May be contributing to his heart failure due to ischemic cardiomyopathy. Allergic to aspirin and atorvastanin. (3) Hypertension Current Visit: Yes Status: Acute Code(s): I10 - ESSENTIAL (PRIMARY) HYPERTENSION SNOMED Code(s): 80522392 Comment: controlled on amlopdipine, clonidine, losartan, spironolactone, labetolol (4) Diabetes Current Visit: Yes Status: Acute Code(s): E11.9 - TYPE 2 DIABETES MELLITUS WITHOUT COMPLICATIONS SNOMED Code(s): 55759284 Comment: Pre prandial FSG 96 - continue basal (lantus) bolus (lispro regimen ) with FSG qachs (5) BPH (benign prostatic hyperplasia) Current Visit: Yes Status: Acute Code(s): N40.0 - BENIGN PROSTATIC HYPERPLASIA WITHOUT LOWER URINRY TRACT SYMP SNOMED Code(s): 372187549 Comment: Patient is on tamsulosin 0.4 mg daily. Have saldana catheter intact after severe phimosis. Inquire about saldana and if necessary may plan to remove. (6) Renal failure Current Visit: Yes Status: Acute Comment: Patient creatinine was 2.96 on presentation and latest creatinine is 3.3. His renal function is abnormal since 2014. Monitor BMP and input and output. (7) Atrial fibrillation Current Visit: Yes Status: Acute Code(s): I48.91 - UNSPECIFIED ATRIAL FIBRILLATION SNOMED Code(s): 59725305 Comment: rate controlled afib creatinine clearance is 16 - will not start on NOAC heparin to coumadin bridge 3 mg warfarin. Status and Disposition: Medicine inpatient for heparin to coumadin bridge Attending: Saran Messina <Saran Messina - Last Filed: 10/16/18 17:02> Objective Active Medications: Acetaminophen (Tylenol Tab*) 975 mg PO Q8H PRN PRN Reason: FEVER/PAIN Amlodipine Besylate (Norvasc Tab*) 5 mg PO BEDTIME [facility] Last Admin: 10/15/18 21:40 Dose: 5 mg Brinzolamide (Azopt 1% Ophth Whitney(Nf)) 1 drop RIGHT EYE BID [facility] Last Admin: 10/16/18 08:35 Dose: Not Given Cholecalciferol (Vitamin D Tab*) 2,000 units PO 1200 [facility] Last Admin: 10/16/18 13:19 Dose: 2,000 units Clonidine HCl (Catapres Tab*) 0.2 mg PO TID [facility] Last Admin: 10/16/18 14:21 Dose: 0.2 mg Dextrose (D50w Syringe 50 Ml*) 12.5 gm IV PUSH .FOR FS < 60 - SS PRN PRN Reason: FS < 60 Heparin Sodium (Porcine) (Heparin Vial(*)) 0 units IV .PER PROTOCOL [facility] Last Admin: 10/14/18 18:22 Dose: 3,200 units Heparin Sodium/Dextrose (Heparin Drip 25,000 Units(*)) 25,000 units in 500 mls @ 0 mls/hr IV PER RATE [facility]; Protocol Last Admin: 10/16/18 12:02 Dose: 11 mls/hr Insulin Glargine (Lantus(*)) 8 units SUBCUT BID [facility] Last Admin: 10/16/18 08:48 Dose: 8 units Insulin Human Lispro (Humalog*) 0 units SUBCUT AC [facility]; Protocol Last Admin: 10/16/18 13:19 Dose: 2 unit Labetalol HCl (Trandate Tab*) 300 mg PO TID [facility] Last Admin: 10/16/18 14:21 Dose: 300 mg Latanoprost (Xalatan 0.005%*) 1 drop BOTH EYES QPM [facility] Last Admin: 10/15/18 17:32 Dose: 1 drop Levothyroxine Sodium (Synthroid Tab*) 112 mcg PO 0600 [facility] Last Admin: 10/16/18 07:00 Dose: 112 mcg Losartan Potassium (Cozaar Tab*) 50 mg PO BID [facility] Last Admin: 10/16/18 08:48 Dose: 50 mg Montelukast Sodium (Singulair Tab*) 10 mg PO 1200 [facility] Last Admin: 10/16/18 13:20 Dose: 10 mg Spironolactone (Aldactone Tab*) 25 mg PO QAM [facility] Last Admin: 10/16/18 08:48 Dose: 25 mg Tamsulosin HCl (Flomax Cap*) 0.4 mg PO BEDTIME [facility] Last Admin: 10/15/18 21:40 Dose: 0.4 mg Timolol Maleate (Timoptic 0.5% Opth*) 2 drop RIGHT EYE BID [facility] Last Admin: 10/16/18 08:49 Dose: 2 drop Warfarin Sodium (Coumadin Tab(*)) 3 mg PO ONCE@1700 ONE; Protocol Stop: 10/16/18 17:01 Vital Signs - 8 hr 10/16/18 10/16/18 11:13 15:20 Temperature 98.1 F 98.4 F Pulse Rate 65 75 Respiratory 20 20 Rate Blood Pressure 147/81 143/69 (mmHg) O2 Sat by Pulse 98 98 Oximetry Result Diagrams: 10/16/18 05:09 10/16/18 05:13 Assess/Plan/Problems-Billing well appearing IRIR CTA b/l soft, Nt, ND warm well perfused, 1+ Le edema AOX3 Assessment: 83 yo M p/w SOB in setting CHF exacerbation now hospitalized with afib on heparin to coumadin bridge CHF - acute -significant diuresis days after diuretics have been discontinued. Can consider stopping aldactone and monitoring in setting of DURAN Acute on chronic kidney injury -stable -holding lasix -monitor with BMP tomorrow Afib - new -poor candidate for NOAC -heparin to coumadin bridge before discharge home - Patient Problems (1) Atrial fibrillation Comment: rate controlled afib creatinine clearance is 16 - will not start on NOAC heparin to coumadin bridge 3 mg warfarin. (2) CHF (congestive heart failure) Comment: Acute, decompensated Improved with lasix Holding further diuretics in setting of acute on chronic DURAN (3) Diabetes Comment: Pre prandial FSG 96 - continue basal (lantus) bolus (lispro regimen) with FSG qachs (4) Hypertension Comment: controlled on amlopdipine, clonidine, losartan, spironolactone, labetolol (5) DVT prophylaxis Comment: heparin gtt Attestation Documenting Resident: Saravanan Supervising Physician: Siddharth Attestation: This service has been performed in part by a resident under the direction of a teaching physician.Siddharth Phillips, performed the service, or was physically present during the critical, or chambers portions of the service, furnished by the resident. I participated in the management of the patient.
[2018-10-16] MEDS ORDERED: Warfarin TAB(*) 3 MG PO ONE (17:00)
[2018-10-16] MEDS: Latanoprost 0.005%* 2.5 ml BTL BOTH EYES SCH (18:05)
[2018-10-16] MEDS: Tamsulosin CAP* 0.4 MG PO SCH (21:13)
[2018-10-16] MEDS: amLODIPine TAB* 5 MG PO SCH (21:13)
[2018-10-17 06:16] LABS: Activated Partial Thrombo Time 77.7 seconds (26.0-38.0); INR 2.71 (0.82-1.09)
[2018-10-17 06:22] LABS: Calcium 8.4 mg/dL (8.6-10.3); Potassium 4.9 mmol/L (3.5-5.0)
[2018-10-17] MEDS: Levothyroxine TAB* 112 MCG TAB PO SCH (06:26)
[2018-10-17 06:28] LABS: BUN/Creatinine Ratio 17.6 (8-20); EGFR African American 21.1 (>60); EGFR Non-African American 17.4 (>60)
[2018-10-17] MEDS: Insulin LISPRO* 1 UNITS UNIT SUBCUT SCH ×2 (08:09→12:16)
[2018-10-17] MEDS: Brinzolamide 1% OPHTH SOL(NF) BTL RIGHT EYE SCH (09:08)
[2018-10-17] MEDS: Labetalol TAB* 300 MG PO SCH ×2 (09:09→13:39)
[2018-10-17] MEDS: Losartan TAB* 25 MG PO SCH (09:09)
[2018-10-17] MEDS: Insulin GLARGINE(*) 1 UNITS UNIT SUBCUT SCH (09:09)
[2018-10-17] MEDS: cloNIDine TAB* 0.1 MG PO SCH ×2 (09:09→13:39)
[2018-10-17] MEDS: Timolol 0.5% OPTH.SOL* BTL RIGHT EYE SCH (09:09)
[2018-10-17] MEDS: Spironolactone TAB* 25 MG PO SCH (09:09)
[2018-10-17] MEDS: Cholecalciferol TAB* 1000 UNITS PO SCH (12:16)
[2018-10-17] MEDS: Montelukast Sodium TAB* 10 MG PO SCH (12:16)
[2018-10-17 15:35] VITALS: BP 139/64
--- NOTE | 2018-10-17 18:32 | DS ---
<Lor Coe - Last Filed: 10/18/18 16:47> Resident Discharge Summary Discharge Summary: Date of Admission: 10/11/18 Date of Discharge: 10/17/18 Admitting MD: Christina Becker MD Attending MD: Christina Becker MD Primary Care Physician: Adrian Aldana MD CC: Dr. Maza ([phone]) Home Medications Medication Instructions Recorded Confirmed Type Montelukast Sodium TAB* [Singulair 10 mg PO 1200 10/14/12 10/11/18 History 10 MG TAB*] Amlodipine Besylate [Norvasc] 5 mg PO BEDTIME 08/31/18 10/11/18 History Brinzolamide 1% OPHTH DARIELA(NF) 1 drop RIGHT EYE BID 08/31/18 10/11/18 History [Azopt 1% OPHTH DARIELA(NF)] Cholecalciferol (Vitamin D3) 2,000 unit PO 1200 08/31/18 10/11/18 History [Vitamin D3] Fenofibrate,Micronized 200 mg PO BEDTIME 08/31/18 10/11/18 History [Fenofibrate] Insulin Detemir (NF) [Levemir (NF)] 10 units SUBCONJUNT BID 08/31/18 10/11/18 History Labetalol HCl 300 mg PO TID 08/31/18 10/11/18 History Latanoprost 0.005%* [Xalatan 1 drop BOTH EYES QPM 08/31/18 10/11/18 History 0.005%*] Levothyroxine TAB* [Synthorid 112 112 mcg PO 0800 08/31/18 10/11/18 History MCG TAB*] Losartan Potassium [Cozaar] 50 mg PO BID 08/31/18 10/11/18 History Spironolactone [Aldactone 25 MG-] 25 mg PO QAM 08/31/18 10/11/18 History Tamsulosin HCl [Flomax] 0.4 mg PO BEDTIME 08/31/18 10/11/18 History Timolol 0.5% OPTH.DARIELA* [Timoptic 2 drop RIGHT EYE BID 08/31/18 10/11/18 History 0.5% Opth*] cloNIDine HCl [Catapres 0.2 MG TAB] 0.2 mg PO TID 08/31/18 10/11/18 History Apixaban [Eliquis] 2.5 mg PO BID #60 tab 10/17/18 Rx Furosemide TAB* [Lasix TAB*] 20 mg PO DAILY #30 tab 10/17/18 Rx Disposition: Home Condition: Improved Primary Diagnosis: 1.Acute on Chronic Heart Failure due to diastolic dysfunction. Secondary Diagnosis: 1.Atrial Fibrillation. 2. Chronic Kidney disease. 3. Diabetes 4. Hypertension Diagnostic Imaging: Chest X-ray: Mild pulmonary vascular congestion and interstitial edema. Transthoracic Echo: Normal EF of 55-60%. Increased LVEDP. Moderate MR, Mold AR AND TR. Pertinent Laboratory Results: BNP: 619 Troponin:0.01 Creatinine: On admission 2.96. On discharge 3.36 APTT: 77.7 INR: 2.7 Glucose- 215. TSH: 6.58 Potassium: 4.9 Magnesium: 2.3 Hospital Course: 83 y/o M former smoker w/o PMH of CHF with reduced EF, CAD, status post coronary artery bypass grafting, HTN, Diabetes( taking insulin), CKD presented with SOB with acute exacerbation for 2 hr associated with PND and swelling of lower extremity upto thighs but no chest pain, fever, chills or vomiting. He had shortness of breath over 1-2 days. He also has PND and sleeps on 1 pillow. Admitted with diagnosis of CHF with acute exacerbation improved with furosemide 40 mg IV, Bipap and Nitroglycerin paste. Hospital course was complicated by Atrial fibrillation and was started on Heparin and Coumadin due to his worsening renal function. But the patient is discharged on eliquis as his worsening kidney function was chronic kidney disease so we gave him 2.5 mg BID. Follow Up Instructions: F/U with PCP in 1 week. Follow up with meat pumper in 1-2 week to asess his liver function. Counselled about low salt and carbohydrates diet. Please note: 1. Oral eliquis 2.5 mg BID 2. Oral furosemide 20 mg OD started 3. Lekelma stopped 4. Daily weight measurement and regular intake of medicine. In case of an emergency or after clinic hours, please go to your nearest Emergency Department. You may also call the [facility] platen press operator apprentice at . <Christina Becker - Last Filed: 10/18/18 17:52> Resident Discharge Summary Discharge Summary: Date of Admission: 10/11/18 Date of Discharge: 10/17/18 Admitting MD: Christina Becker MD Attending MD: Lor Coe MD Primary Care Physician: Adrian Aldana MD Home Medications Medication Instructions Recorded Confirmed Type Montelukast Sodium TAB* [Singulair 10 mg PO 1200 10/14/12 10/11/18 History 10 MG TAB*] Amlodipine Besylate [Norvasc] 5 mg PO BEDTIME 08/31/18 10/11/18 History Brinzolamide 1% OPHTH DARIELA(NF) 1 drop RIGHT EYE BID 08/31/18 10/11/18 History [Azopt 1% OPHTH DARIELA(NF)] Cholecalciferol (Vitamin D3) 2,000 unit PO 1200 08/31/18 10/11/18 History [Vitamin D3] Fenofibrate,Micronized 200 mg PO BEDTIME 08/31/18 10/11/18 History [Fenofibrate] Insulin Detemir (NF) [Levemir (NF)] 10 units SUBCONJUNT BID 08/31/18 10/11/18 History Labetalol HCl 300 mg PO TID 08/31/18 10/11/18 History Latanoprost 0.005%* [Xalatan 1 drop BOTH EYES QPM 08/31/18 10/11/18 History 0.005%*] Levothyroxine TAB* [Synthorid 112 112 mcg PO 0800 08/31/18 10/11/18 History MCG TAB*] Losartan Potassium [Cozaar] 50 mg PO BID 08/31/18 10/11/18 History Spironolactone [Aldactone 25 MG-] 25 mg PO QAM 08/31/18 10/11/18 History Tamsulosin HCl [Flomax] 0.4 mg PO BEDTIME 08/31/18 10/11/18 History Timolol 0.5% OPTH.DARIELA* [Timoptic 2 drop RIGHT EYE BID 08/31/18 10/11/18 History 0.5% Opth*] cloNIDine HCl [Catapres 0.2 MG TAB] 0.2 mg PO TID 08/31/18 10/11/18 History Apixaban [Eliquis] 2.5 mg PO BID #60 tab 10/17/18 Rx Furosemide TAB* [Lasix TAB*] 20 mg PO DAILY #30 tab 10/17/18 Rx Follow Up Instructions: In case of an emergency or after clinic hours, please go to your nearest Emergency Department. You may also call the [facility] platen press operator apprentice at .
== END 2018-10-17 16:33 | disposition home or self-care (01) | DRG 291 ==
LOC: ED 02:01 → MEDTELE 04:54
PROVIDERS: ADMIT Internal Medicine; ATTEND Internal Medicine
DX: I13.0 Hypertensive heart and chronic kidney disease with heart failure and stage 1 through stage 4 chronic kidney disease, or unspecified chronic kidney disease (principal); I50.33 Acute on chronic diastolic (congestive) heart failure; N17.9 Acute kidney failure, unspecified; N18.9 Chronic kidney disease, unspecified; E11.22 Type 2 diabetes mellitus with diabetic chronic kidney disease; I08.3 Combined rheumatic disorders of mitral, aortic and tricuspid valves; I48.91 Unspecified atrial fibrillation; I25.10 Atherosclerotic heart disease of native coronary artery without angina pectoris; E03.9 Hypothyroidism, unspecified; D64.9 Anemia, unspecified; N40.0 Benign prostatic hyperplasia without lower urinary tract symptoms; J30.9 Allergic rhinitis, unspecified; Z95.1 Presence of aortocoronary bypass graft; Z79.4 Long term (current) use of insulin; Z79.899 Other long term (current) drug therapy; Z88.6 Allergy status to analgesic agent; Z88.8 Allergy status to other drugs, medicaments and biological substances; Z81.1 Family history of alcohol abuse and dependence; Z87.891 Personal history of nicotine dependence
CPT/HCPCS: 36415; 71045; 80048; 80053; 82565; 82728; 82803; 83540; 83550; 83735; 83880; 84443; 84484; 84520; 85025; 85610; 85730; 87040; 93005; 93306; 99283; A9270-GY; J1644; J1650; J1940; J3475